=== PATIENT | female | born 1935 | race Two or more races ===

== ENCOUNTER 2024-11-27 10:07 | Inpatient (IN) | payer MEDICARE, MEDICAID, SELFPAY ==
[2024-11-27] VITALS (56 sets, daily range): BP systolic 56–155; BP diastolic 28–89; PULSE 48–144; RESP 12–90; TEMP 36.4–36.7; O2SAT 82–100; BMI 28.9
--- NOTE | 2024-11-27 11:41 | XR_ITS ---
Examination: Duplex scan of the lower extremity, unilateral left complete Date and time of exam: November 27, 2024 1209 hours INDICATIONS: Redness swelling and pain involving the lower leg this week Technique: Duplex scan of the extremity veins using B-mode/grayscale imaging and Doppler spectral analysis and color flow Attention is directed to internal echogenicity, compression and augmentation involving these veins, color flow assessment, spectral analysis Findings: Major deep venous structures in the extremity demonstrate normal course and caliber. There is no evidence of deep vein thrombosis. Normal color flow and spectral analysis Impression: Negative for DVT..
--- NOTE | 2024-11-27 11:42 | PD.EDADULT ---
ED General RME/HPI General Chief complaint: General Adult/Misc Complain Stated complaint: RULE OUT DVT Time Seen by Provider: 11/27/24 11:39 Arrival date/time: 11/27/24 10:07 CC: Left lower extremity warm and red. Reported by assisted care facility the patient is barely verbal and I believe this is baseline per nursing report. Patient states she has no specific pain after multiple times of prompting her awake. Related Data Home Medications ?Medication ?Instructions ?Recorded ?Confirmed famotidine 20 mg tablet (Pepcid) 20 mg PO QDAY #0 tabs 08/05/12/23/23 insulin glargine 100 unit/mL (3 10 unit subcut QAM 02/13/21 12/23/23 mL) subcutaneous pen (Basaglar KwikPen U-100 Insulin) calcitriol 0.25 mcg capsule 0.25 mcg PO HS 10/13/21 12/23/23 ferrous sulfate 325 mg (65 mg 325 mg PO BID 10/13/21 12/23/23 iron) tablet folic acid 1 mg tablet 1 mg PO QDAY 10/13/21 12/23/23 memantine 10 mg tablet 10 mg PO BID 10/13/21 12/23/23 amlodipine 2.5 mg tablet 2.5 mg PO QAM 10/13/23 12/23/23 atorvastatin 80 mg tablet 80 mg PO HS 10/13/23 12/23/23 carvedilol 3.125 mg tablet 3.125 mg PO BID 10/13/23 12/23/23 clopidogrel 75 mg tablet 75 mg PO QDAY 10/13/23 12/23/23 acetaminophen 325 mg tablet 650 mg PO Q6HR PRN MILD PAIN (1-3) 12/23/23 12/23/23 (Tylenol) cyanocobalamin (vitamin B-12) 1,000 mcg PO DAILY 12/23/23 12/23/23 1,000 mcg tablet insulin aspart U-100 100 unit/mL 1 sliding scale dose subcut 12/23/23 12/23/23 subcutaneous solution (Novolog USEASDIRECTD U-100 Insulin aspart) insulin glargine 100 unit/mL (3 10 unit subcut HS 12/23/23 12/23/23 mL) subcutaneous pen (Basaglar KwikPen U-100 Insulin) linagliptin 5 mg tablet (Tradjenta) 5 mg PO QDAY 12/23/23 12/23/23 Previous Rx's ?Medication ?Instructions ?Recorded pantoprazole 40 mg tablet,delayed 40 mg PO QDAY #30 tabs 10/17/23 release cephalexin 500 mg capsule 500 mg PO BID #10 caps 12/24/23 Allergies Allergy/AdvReac Type Severity Reaction Status Date / Time No Known Allergies Allergy Verified 11/27/24 10:46 Review of Systems Review of Systems ROS Unobtainable: unobtainable due to mental status Past Medical History Past Medical History NEUROLOGIC: Positive Neurological Disorders, Cerebrovascular Accident and Dementia; Negative Transient Ischemic Attacks (TIA), Alzheimer's Disease, Parkinson's Disease, Brain Tumor, Meningitis, Seizures, Epilepsy, Multiple Sclerosis, Cerebral Palsy, Amyotrophic Lateral Sclerosis (ALS/Quin Gehrig's), Guillain-Enola Syndrome, Spina Bifida, Paralysis, Peripheral Neuropathy, Diaz's Palsy, Subdural Hematoma, Migraine, Head Trauma, Spinal Cord Injury or Traumatic Brain Injury CARDIAC: Positive Hypercholesterolemia, Deep Vein Thrombosis and Hypertension; Negative Cardiac Disorders, Myocardial Infarction, Cardiac Arrhythmia, Atrial Fibrillation, Angina, Heart Murmur, Coronary Artery Disease, Atherosclerotic Heart Disease, Peripheral Vascular Disease, Aneurysm, Congestive Heart Failure, Congenital Heart Disease, Valvular Heart Disease, Rheumatic Fever, Cardiomyopathy, Edema, Pericarditis, Cellulitis or Varicose Veins RESPIRATORY: Positive Pneumonia; Negative Chronic Obstructive Pulmonary Disease (COPD), Asthma, Bronchitis, Emphysema, Pulmonary Fibrosis, Cystic Fibrosis, Tuberculosis, Pulmonary Embolism, Pulmonary Edema or Sleep Apnea GASTROINTESTINAL: Negative Gastrointestinal Disorders or Colorectal Cancer GENITOURINARY: Positive Genitourinary Disorders and Renal Disease; Negative Kidney Stones, Polycystic Kidney Disease, Neurogenic Bladder, Inguinal Hernia, Dialysis, Prostate Cancer or Benign Prostatic Hyperplasia REPRODUCTIVE: Positive Previous Pregnancies; Negative Breast Cancer, Endometriosis, Genital Herpes, Gonorrhea, Pelvic Inflammatory Disease, Syphilis, Testicular Cancer or Uterine Prolapse MUSCULOSKELETAL: Positive Musculoskeletal Disorders, Osteoporosis, Carpal Tunnel Syndrome and Fractures (wedge fracture of first lumbar vertebrae); Negative Muscular Dystrophy, Myasthenia Gravis, Marfan's Syndrome, Bone Cancer, Arthritis, Rheumatoid Arthritis, Degenerative Disk Disease, Gout, Scoliosis, Fibromyalgia, Degenerative Joint Disease, Osteomyelitis or Poliovirus ENT: Negative Cataracts, Glaucoma, Blind, Retinal Detachment, Macular Degeneration, Ear Infection, Deafness, Head Trauma or Eye Prosthesis ENDOCRINE: Positive Endocrine Disorders, Diabetes Mellitus Type 2 and Hypoglycemia; Negative Diabetes Mellitus Type 1, João's Syndrome, Dawson's Disease, Hyperthyroidism, Hypothyroidism, Parathyroid Disease, Pituitary Disease, Systemic Lupus Erythematosus, Syndrome of Inappropriate Antidiuretic Hormone (SIADH), Adrenal Disease or Graves' Disease HEMATOLOGIC: Negative Blood Disorders, Anemia, Leukemia, Hemophilia, Thalassemia, Sickle Cell Disease or Clotting Problems PSYCHO/SOCIAL: Negative Psychiatric Problems, Schizophrenia, Recreational Drug Use, Bipolar Disorder, Depression, Anxiety, Behavior Problems, Self-Mutilation, Attention Deficit Disorder, Attention Deficit Hyperactivity Disorder, Depression, Post Traumatic Stress Disorder or Eating Disorder OTHER HISTORY: Positive Hospitalization and Falls; Negative Autoimmune Disease, Down Syndrome, Autism, Developmental Delay, Blood Transfusions, Blood Transfusion Reaction, Anesthesia Reactions, Cancer, Breast Cancer, Cervical Cancer, Colorectal Cancer, Lung Cancer, Ovarian Cancer, Prostate Cancer or Testicular Cancer Surgical History SURGICAL: Negative Pacemaker Social History SMOKING STATUS: Never smoker SUBSTANCE USE: does not use ED Exam Narrative Physical exam: [General: Appears not in any acute distress Head normocephalic HEENT: Eyes: Pupils are PERRLA EOMs mouth: [place] dry membranes nose no rhinorrhea. All other subsystems of HEENT are intact within acceptable limits Neck is supple nontender Chest equal chest rise nontender to palpation Respiratory: Clear to auscultation no wheezes crackles or rubs CV: Rate rhythm is regular no murmurs rubs or clicks Abdomen is soft, no grimaces with palpation, no masses positive bowel sounds all 4 quadrants Back: No CVA tenderness no spinous process tenderness from cervical spine thoracic and lumbar spine Skin: Intact no petechiae rash induration ulceration or crepitus Extremities: Moving all extremity against resistance cap refill less than 2 seconds neurosensory intact Neuro: Sleeping, awakened with verbal stimuli. Course Quality Measures none Orders Category Date Time Status In and Out Catheter X1 Care 11/27/24 11:41 Active US venous doppler LE LT Stat Exams 11/27/24 11:41 Completed CBC Stat Lab 11/27/24 12:30 Completed CMP [Comprehensive Metabolic Panel] Stat Lab 11/27/24 12:30 Completed Urinalysis, C/S if Indicated Stat Lab 11/27/24 12:49 Completed Urine Culture Stat Lab 11/27/24 12:49 Received cefTRIAXone [Rocephin] 1,000 mg Med 11/27/24 13:43 Ordered SODIUM CHLORIDE 0.9% (Popper) [Ns 0.9% (P)] 50 ml IV X1 MDM Patient data External records reviewed:: [facility] previous records and EMS form Clinical information provided by:: patient and EMS Social determinants that could affect healthcare access:: none Patient has the following chronic illnesses:: CKD CVA DVT left lower extremity diabetes iron deficiency dementia How is presenting disease/condition affected by chronic disease/condition?: exacerbated by Evaluation data The following diagnostics were reviewed and interpreted by me:: lab results and radiology exam(s) Lab and/or radiology exams considered but not ordered:: CBC shows a leukocytosis of 15.5 and anemia with a hemoglobin of 7.5 and a crit of 23.2 platelets are normal. CMP shows sodium 135 potassium of 4.4 chloride of 105 carbon dioxide 21.3 gap of 9 BUN of 60 and a creatinine of 3.2 this significantly worsening from last laboratory draw with a GFR of 13 glucose at 145 no significant transaminitis or T. bili elevation. Urine is positive for UTI UTI Ultrasound of the lower leg is negative for DVT. Interpretation Summary: Given the patient which is sent over for rule out DVT I suspect this is cellulitis in the lower leg with a 15,000 white count and in addition to having urinary tract infection the patient is in acute on chronic renal failure and patient needs to be admitted as the patient is a full code. Patient's case discussed with the resident for Dr. Leavitt who agrees to accept the patient for admission. Medications Medications considered but not ordered:: None Medication administrations:: Medication Administration History Ceftriaxone Sodium 1,000 mg/ (Sodium Chloride) 50 mls @ 100 mls/hr IV X1 ONE Stop: 11/27/24 14:12 None Consultations Consultation(s) initiated? (list below): No Diagnosis Differential Diagnosis ED Complaint MDM: DVT sepsis UTI acute renal failure Most likely diagnosis given after review of the tests above:: Lower leg cellulitis UTI acute on chronic renal failure Admission Indicated Admission indicated?: indicated Explain why admission is indicated or not indicated:: Requires further medical management Admission Request Was there a request for admission?: No Disposition Plan Disposition Plan: Admit Medical Decision Making Differential Diagnosis Differential Diagnosis: DVT sepsis UTI acute renal failure Lab Data 11/27/24 12:30 11/27/24 12:30 Labs: Lab Results 11/27/24 11/27/24 Range/Units 12:30 12:49 WBC 15.5 H (3.6-11.0) Thou/mm3 RBC 2.35 L (4.00-5.20) Miln/mm3 Hgb 7.5 L (12.0-16.0) g/dL Hct 23.2 L (36.0-46.0) % MCV 99 (80-100) fL MCH 31.9 (25.0-35.0) pg MCHC 32.3 (31.0-37.0) g/dl RDW Std Deviation 45.1 (36.4-46.3) fL Plt Count 175 (140-440) Thou/mm3 Neut % (Auto) 82 H (37-80) % Lymph % (Auto) 10 (10-50) % [place] % (Auto) 7 (0-12) % Eos % (Auto) 0 (0-10) % Baso % (Auto) 0 (0-2.5) % Neut # (Auto) 12.7 H (1.8-7.7) Thou/mm3 Lymph # (Auto) 1.5 (1.0-4.8) Thou/mm3 [place] # (Auto) 1.1 H (0.0-0.8) Thou/mm3 Eos # (Auto) 0.1 (0.0-0.5) Thou/mm3 Baso # (Auto) 0.0 (0.0-0.2) Thou/mm3 Immature Gran # (Auto) 0.08 H (0.00-0.00) Thou/mm3 Absolute Nucleated RBC 0.00 (0.00-0.00) Thou/mm3 Immature Gran % 1 H (0-0) % Nucleated RBC % 0 (0) /100 WBC Sodium 135 L (136-145) mMol/L Potassium 4.4 (3.4-5.1) mMol/L Chloride 105 (98-107) mMol/L Carbon Dioxide 21.3 (20.0-31.0) mMol/L Anion Gap 9 (7-16) BUN 60 H (9-23) mg/dL Creatinine 3.2 H (0.6-1.3) mg/dL Estim Creat Clear Calc 11.0 L (>60) mL/min eGFR 13 L* (60 - ) See Note BUN/Creatinine Ratio 19 (12-20) Ratio Glucose 145 H (74-106) mg/dL Calculated Osmolality 290 (275-295) Calcium 8.7 (8.3-10.6) mg/dL Corrected Calcium 9.3 (8.5-10.1) mg/dL Total Bilirubin 0.5 (0.3-1.2) mg/dL AST 20 (0-34) U/L ALT 8 L (10-49) U/L Alkaline Phosphatase 70 (46-116) U/L Total Protein 6.3 (5.7-8.2) gm/dL Albumin 3.2 L (3.4-4.8) gm/dL Globulin 3.1 (2.3-3.5) gm/dL Albumin/Globulin Ratio 1.0 L (1.2-2.2) Ur Collection Type Catheter Urine Color [place] A (Lt Yel-Yel) Urine Clarity Cloudy A (Clear/Hazy) Urine pH 6.5 (5.0-7.0) Ur Specific [place] 1.019 (1.001-1.035) Urine Protein 2+ A (Neg - Trace) Urine Glucose (UA) Negative (Negative) Urine Ketones Negative (Negative) Urine Blood 2+ A (Negative) Urine Nitrite Negative (Negative) Urine Bilirubin Negative (Negative) Urine Urobilinogen (Auto) Negative (0.0-1.0) mg/dL Ur Leukocyte Esterase Positive (Negative) Urine RBC 27 H (0-3) /hpf Urine WBC 2440 H (0-5) /hpf Ur Squamous Epith Cells 0 (0-5) /hpf Urine Bacteria 1+ A (None) Ur Culture Indicated? Yes Discharge Plan Plan Patient Disposition: Other Care w/in Hosp ([facility]) Patient condition on transfer: Stable Prescriptions/Referrals Prescriptions/Med Rec: No Action famotidine [Pepcid] 20 MG tablet 20 mg PO QDAY Qty: 0 Patient Comments: TO SUPPRESS GASTRIC ACID SECRETION ferrous sulfate 325 mg (65 mg iron) Tablet 325 mg PO BID folic acid 1 mg tablet 1 mg PO QDAY calcitriol 0.25 mcg Capsule 0.25 mcg PO HS memantine 10 mg Tablet 10 mg PO BID insulin glargine [Basaglar KwikPen U-100 Insulin] 100 unit/mL (3 mL) insulin pen 10 unit SUBCUT QAM Rx Instructions: NOTIFY MD IF BS >400,<70 carvedilol 3.125 mg Tablet 3.125 mg PO BID Rx Instructions: must administer with a meal/food HOLD FOR SBP<100,DBP<60 amlodipine 2.5 mg Tablet 2.5 mg PO QAM Rx Instructions: HOLD FOR SBP<100 OR DBP<60 clopidogrel 75 mg Tablet 75 mg PO QDAY atorvastatin 80 mg Tablet 80 mg PO HS pantoprazole 40 mg tablet,delayed release (DR/EC) 40 mg PO QDAY Qty: 30 1RF insulin glargine [Basaglar KwikPen U-100 Insulin] 100 unit/mL (3 mL) Insulin Pen 10 unit SUBCUT HS Rx Instructions: DM FINGERSTICK PRIOR TO ADMINISTRATION-NOTIFY MD IF BS>400,<70 Tradjenta 5 mg Tablet 5 mg PO QDAY Rx Instructions: FOR DM,HOLD IF BS <100 OR NOTIFY MD IF BS>400 acetaminophen [Tylenol] 325 mg Tablet 650 mg PO Q6HR PRN (Reason: MILD PAIN (1-3)) insulin aspart U-100 [Novolog U-100 Insulin aspart] 100 unit/mL Solution 1 sliding scale dose SUBCUT USEASDIRECTD Rx Instructions: INJECT PER SLIDING SCALE: IF 70-150=0;151-200=2;201-250=4;251-300=6;301-350=8;351-400=10;>400 NOTIFY MD,SUBCUT 3X A DAY FOR DM HOLD BS IF<100 OR NOTIFY MD IF BS >400,<70 FINGERSTICK PRIOR TO ADMINISTRATION. cyanocobalamin (vitamin B-12) 1,000 mcg Tablet 1,000 mcg PO DAILY cephalexin 500 mg capsule 500 mg PO BID Qty: 10 0RF Referrals: Williams White MD [Primary Care Provider] - In 1 week Problem List Clinical Impression: UTI (urinary tract infection), Acute on chronic kidney failure, Bilateral cellulitis of lower leg Patient/Caregiver Discharge Instructions Print Language: Tamazight Stand Alone Forms: Nelsy Award Info., Patient Portal Info Letter PA/SYSTEMS MECHANIC Supervising Physician PA/SYSTEMS MECHANIC Supervising Physician: Jacoby Carney ENP
[2024-11-27 12:39] LABS: Basophils % (Auto) 0 % (0-2.5); Eosinophils # (Auto) 0.1 Thou/mm3 (0.0-0.5); Eosinophils % (Auto) 0 % (0-10); Hematocrit 23.2 % (36.0-46.0); Immature Granulocytes % (Auto) 1 % (0-0); Immature Granulocytes Auto 0.08 Thou/mm3 (0.00-0.00); Lymphocytes # (Auto) 1.5 Thou/mm3 (1.0-4.8); Lymphocytes % (Auto) 10 % (10-50); Mean Corpuscular HGB Conc 32.3 g/dl (31.0-37.0); Mean Corpuscular Hemoglobin 31.9 pg (25.0-35.0); Mean Corpuscular Volume 99 fL (80-100); Monocytes # (Auto) 1.1 Thou/mm3 (0.0-0.8); Monocytes % (Auto) 7 % (0-12); Neutrophils # (Auto) 12.7 Thou/mm3 (1.8-7.7); Neutrophils % (Auto) 82 % (37-80); Nucleated Red Blood Cell % 0 /100 WBC (0); Platelet Count 175 Thou/mm3 (140-440); RDW Standard Deviation 45.1 fL (36.4-46.3); Red Blood Count 2.35 Miln/mm3 (4.00-5.20); White Blood Count 15.5 Thou/mm3 (3.6-11.0)
[2024-11-27 12:43] LABS: Hemoglobin 7.5 g/dL (12.0-16.0)
[2024-11-27 13:00] LABS: Collection Type, Urine Catheter; Squamous Epithelial Cell,Urine 0 /hpf (0-5)
[2024-11-27 13:12] LABS: Bacteria,Urine 1+; Bilirubin,Urine Negative (Negative); Blood,Urine 2+ (Negative); Color,Urine Orange (Lt Yel-Yel); Glucose, Urine Negative (Negative); Ketones,Urine Negative (Negative); Leukocyte Esterase,Urine Positive (Negative); Nitrite,Urine Negative (Negative); PH,Urine 6.5 (5.0-7.0); Protein,Urine 2+ (Neg - Trace); RBC,Urine 27 /hpf (0-3); Specific Gravity,Urine 1.019 (1.001-1.035); Urobilinogen,Urine Negative mg/dL (0.0-1.0); WBC,Urine 2440 /hpf (0-5)
[2024-11-27 13:15] LABS: Clarity,Urine Cloudy (Clear/Hazy); Culture Indicated,Urine Yes
[2024-11-27 13:16] LABS: Alanine Aminotransferase 8 U/L (10-49); Albumin, Serum 3.2 gm/dL (3.4-4.8); Alkaline Phosphatase 70 U/L (46-116); Anion Gap 9 (7-16); Aspartate Amino Transferase 20 U/L (0-34); BUN/Creatinine Ratio 19 Ratio (12-20); Bilirubin,Total 0.5 mg/dL (0.3-1.2); Blood Urea Nitrogen 60 mg/dL (9-23); Calcium 8.7 mg/dL (8.3-10.6); Calcium (Corrected) 9.3 mg/dL (8.5-10.1); Carbon Dioxide 21.3 mMol/L (20.0-31.0); Chloride 105 mMol/L (98-107); Creatinine (Component) 3.2 mg/dL (0.6-1.3); Globulin 3.1 gm/dL (2.3-3.5); Glucose 145 mg/dL (74-106); Osmolality,Calculated 290 (275-295); Potassium 4.4 mMol/L (3.4-5.1); Sodium 135 mMol/L (136-145); Total Protein 6.3 gm/dL (5.7-8.2); eGFR 13 See Note
[2024-11-27] MEDS: cefTRIAXone 1,000 MG in SODIUM CHLORIDE 0.9% (Popper) 50 ML 100 MG IV (14:13)
[2024-11-27] MEDS: SODIUM CHLORIDE 0.9% 500 ML 500 ML 999 ML IV ×3 (14:14→15:03)
--- NOTE | 2024-11-27 14:30 | EKG_ITS ---
[facility] Test Date: 2024-11-27 Pat Name: GABE STANLEY Department: Room: - Gender: Female Bell Ringer: : 1935 Requested By: Lacie Higgins Order Number: [id number] Reading MD: Lacie Higgisn Measurements Intervals [place] Rate: 69 P: 23 WI: 151 QRS: 15 QRSD: 76 T: 3 QT: 425 QTc: 458 Interpretive Statements SINUS RHYTHM Compared to ECG 06/16/2022 11:21:45 No significant changes /store/S0/[id number].pdf
--- NOTE | 2024-11-27 14:30 | XR_ITS ---
Examination: AP chest single view Technique one AP portable upright chest single view Exam date and time: November 27, 2024 1340 hours Comparison December 22, 2023 INDICATIONS: Shortness of breath today. FINDINGS: Moderate vascular congestion Normal heart size No lobar pneumonia IMPRESSION: Moderate vascular congestion
--- NOTE | 2024-11-27 14:40 | PC.NURSE ---
md dr. burrell at bedside pt went unresponsive .
--- NOTE | 2024-11-27 14:40 | XR_ITS ---
Examination: CT chest, without intravenous contrast. CT abdomen, without intravenous contrast. CT pelvis, without intravenous contrast. 2-D sagittal and coronal reconstructions. 3-D reconstructions. Date and time of exam:November 27, 2024 1551 hours INDICATIONS: Onset shortness of breath chest pain today, history severe emphysematous gastritis on CT abdomen October 12, 2023 CTDI vol (mgy) 8.24 DLP (MGycm)534 Technique: Multiple CT images, 3.0 mm slice thickness, obtained chest, abdomen, pelvis, with the high-resolution 64 slice scanner.. Sagittal and coronal 2-D reconstructions are obtained. 3-D reconstructions Low dose protocols were performed. One or more of the following dose reduction techniques were used; automated exposure control, adjustment of the mA and/or KV according to patient size, use of iterative reconstruction technique. Findings: No thoracic aortic aneurysm dilatation Pulmonary artery segments are not enlarged Calcification vomiting lower bronchial tubes No paratracheal tracheobronchial or bronchopulmonary adenopathy Opacity left base consistent with pneumonia No visualized liver or splenic lesion Mildly hyperdense gallbladder No pancreatic or adrenal mass Atrophic kidneys no hydronephrosis Abdominal aortic calcification no aneurysmal dilatation 28 mm fat-containing umbilical hernia No pericecal inflammatory change No bowel obstruction Mildly fluid distended small bowel loops Anteverted uterus with fundal areas of calcification Severe osteopenia with chronic osteoporotic compression L1 Moderate narrowing hip joints IMPRESSION: Left base pneumonia Recommend hepatobiliary sonography follow-up 20 mm fat-containing umbilical hernia No bowel obstruction Mild small bowel ileus Severe osteopenia
--- NOTE | 2024-11-27 14:40 | XR_ITS ---
Examination: CT brain head without contrast. 2-D sagittal coronal reconstructions Date and time of exam:November 27, 2024 1456 hours Comparison December 22, 2023 INDICATIONS: Altered mental status today CTDI: vol (mGy):45.1 DLP: (mGycm):1007 Technique: Multiple CT axial sections of the brain have been obtained, 5 mm slice thickness. Contrast has not been administered. 2-D sagittal, coronal reconstructions have been obtained Low dose protocols were performed. One or more of the following dose reduction techniques were used; automated exposure control, adjustment of the mA and/or KV according to patient size, use of iterative reconstruction technique. Findings: No significant ventricular enlargement. Old infarcts right cerebellar hemisphere Intra-axial or extra-axial hemorrhage density is not seen. No mass effect or midline shift Basal cisterns are not remarkable. Fourth ventricle is midline. Cranial vault intact. Impression: Negative for acute hemorrhage, mass effect or midline shift As clinically warranted, consider brain MRI follow-up, stroke protocol
--- NOTE | 2024-11-27 14:47 | PD.RESCONSUL ---
HPI Data of Consult Primary Care Provider: Williams White MD Consult Narrative Reason for consult: Evaluation for admission for DEEPA on CKD and UTI History of present illness: Patient is a 89-year-old [place]guillan-speaking female with past medical history of type 2 diabetes, GERD, CVA, dementia, hyperlipidemia, hypertension, DVT, and CKD stage 4, who was brought to the ED from [facility] on 11/27/2024 due to swelling and redness of the left lower extremity for DVT evaluation. Patient herself did not seem to be having any complaints. Patient's who is the decision maker present at the bedside. He states he has not noticed any changes in the patient. He confirms that the patient is Full Code status. At baseline the patient is talking, although has some element of dementia. She is a maximal assist when transferring but she was walking short amount with a walker previously. ED Course: -Initial vitals were BP 103/53, HR 71, RR 16, and Temp 97.7, saturating 99% on room air. -Labs significant for WBC 15.5, Hgb 7.5, BUN 60, creatinine 3.2 (baseline 2.0), GFR 13 (baseline 20s) -UA showed positive leukocyte esterase with 2440 WBCs, 1+ bacteria -In the ED, patient was given ceftriaxone 1 g IV x1 and IV NS 500 ml bolus -Hospitalist Team B was called for evaluation for admission for DEEPA on CKD and UTI -At approximately 14:31 the hospitalist team was at bedside evaluating the patient, at first patient appeared to be responding to some questions in [place] with nods but then patient suddenly became less responsive, appeared to nod her head to the left and started snoring with eyes open. She subsequently started desaturating to 80%, previously was saturating well 90s on room air. BP was recycled and showed a MAP in the 50s for several readings. Despite sternal rub patient was no longer interacting with providers and patient not withdrawing to pain. RN and RT called to bedside to initiate O2 therapy and ED providers called to bedside. EKG, CXR, troponin, lactate, procalcitonin, and ABG were ordered. ED ordered additional 1L fluid bolus, CT head, chest/abdomen/pelvis and will follow up as patient is stabilized. Admission will be held off for now pending studies. Review of Systems Review of systems unable to be obtained due to mental status. cc:: cc: Past Medical History Past Medical History Comments PMH COMMENT: Past Medical History: Type 2 diabetes, GERD, CVA, dementia, hyperlipidemia, hypertension, DVT, CKD stage 4 Family History: Unknown Surgical History: Unknown Social History: No known history of smoking, alcohol use, or recreational drug use Current Medications: cephalexin 500 mg BID (started 11/27/2024 for cellulitis), amlodipine 2.5 mg daily, atorvastatin 80 mg daily, insulin glargine 18 U qday, insulin aspart 7 U AC, insulin aspart sliding scale, Tradjenta 5 mg daily, carvedilol 3.125 mg BID, clopidogrel 75 mg daily, famotidine 20 mg daily, memantine 10 mg BID, calcitriol 0.25 mcg daily, ferrous sulfate 325 mg BID, folic acid 1 mg daily, Vitamin B12 1000 U daily, Benadryl 25 mg q12h prn, acetaminophen 325 mg as needed, dulcolax 10 mg prn, milk of magnesia 30 ml prn, fleet enema prn (Source: [facility] med list 11/28/2023) Allergies: No known drug allergies Exam Vital Signs Temp Pulse Resp BP Pulse Ox O2 Del Method 97.6 F 75 12 73/42 L 82 L Room Air 11/27/24 14:43 11/27/24 14:43 11/27/24 14:43 11/27/24 14:43 11/27/24 14:43 11/27/24 14:43 Narrative Exam Physical Exam General: Patient awake, nods head in response to questions in [place]. Minutes later patient became unresponsive to sternal rub. HEENT: Normocephalic, atraumatic, mucous membranes moist. Left eye with medial yellow crusting. Heart: Regular rate and rhythm, no murmurs. Lungs: Clear to auscultation with no wheezing or crackles. Abdomen: Soft, nondistended, nontender, positive bowel sounds. ?No guarding or rebound tenderness. Neurologic: Alert and oriented x0, moving all extremities spontaneously Extremities: Left lower extremity significant edema, warm to touch, slightly darker in color than right. No right lower extremity edema. Skin: Mild erythema of the left lower extremity, no clear demarcation. Results Labs 11/27/24 14:53 11/27/24 14:53 Labs: Short CBC 11/27/24 Range/Units 12:30 WBC 15.5 H (3.6-11.0) Thou/mm3 Hgb 7.5 L (12.0-16.0) g/dL Hct 23.2 L (36.0-46.0) % Plt Count 175 (140-440) Thou/mm3 BMP 11/27/24 12:30 Sodium 135 L Potassium 4.4 Chloride 105 Carbon Dioxide 21.3 BUN 60 H Creatinine 3.2 H Glucose 145 H Calcium 8.7 Liver Function 11/27/24 Range/Units 12:30 Total Bilirubin 0.5 (0.3-1.2) mg/dL AST 20 (0-34) U/L ALT 8 L (10-49) U/L Alkaline Phosphatase 70 (46-116) U/L Albumin 3.2 L (3.4-4.8) gm/dL Urine 11/27/24 Range/Units 12:49 Urine Color [place] A (Lt Yel-Yel) Urine Clarity Cloudy A (Clear/Hazy) Urine pH 6.5 (5.0-7.0) Ur Specific [place] 1.019 (1.001-1.035) Urine Protein 2+ A (Neg - Trace) Urine Glucose (UA) Negative (Negative) Quality Measures Quality Measures none Advance care planning discussed with:: patient and spouse Medications Home Medications and Allergies Home Medications ?Medication ?Instructions ?Recorded ?Confirmed ?Type famotidine 20 mg tablet (Pepcid) 20 mg PO QDAY #0 tabs 08/05/17 12/23/23 History insulin glargine 100 unit/mL (3 10 unit subcut [facility] 02/13/21 12/23/23 History mL) subcutaneous pen (Basaglar KwikPen U-100 Insulin) calcitriol 0.25 mcg capsule 0.25 mcg PO HS 10/13/21 12/23/23 History ferrous sulfate 325 mg (65 mg 325 mg PO BID 10/13/21 12/23/23 History iron) tablet folic acid 1 mg tablet 1 mg PO QDAY 10/13/21 12/23/23 History memantine 10 mg tablet 10 mg PO BID 10/13/21 12/23/23 History amlodipine 2.5 mg tablet 2.5 mg PO QAM 10/13/23 12/23/23 History atorvastatin 80 mg tablet 80 mg PO HS 10/13/23 12/23/23 History carvedilol 3.125 mg tablet 3.125 mg PO BID 10/13/23 12/23/23 History clopidogrel 75 mg tablet 75 mg PO QDAY 10/13/23 12/23/23 History acetaminophen 325 mg tablet 650 mg PO Q6HR PRN MILD PAIN (1-3) 12/23/23 12/23/23 History (Tylenol) cyanocobalamin (vitamin B-12) 1,000 mcg PO DAILY 12/23/23 12/23/23 History 1,000 mcg tablet insulin aspart U-100 100 unit/mL 1 sliding scale dose subcut 12/23/23 12/23/23 History subcutaneous solution (Novolog USEASDIRECTD U-100 Insulin aspart) insulin glargine 100 unit/mL (3 10 unit subcut HS 12/23/23 12/23/23 History mL) subcutaneous pen (Basaglar KwikPen U-100 Insulin) linagliptin 5 mg tablet (Tradjenta) 5 mg PO QDAY 12/23/23 12/23/23 History Allergies Allergy/AdvReac Type Severity Reaction Status Date / Time No Known Allergies Allergy Verified 11/27/24 10:46 Visit Medications Sodium Chloride (Ns) 500 mls @ 999 mls/hr IV .Q31M ONE Stop: 11/27/24 15:11 Last Admin: 11/27/24 14:45 Dose: 999 mls/hr Discontinued Medications Ceftriaxone Sodium 1,000 mg/ (Sodium Chloride) 50 mls @ 100 mls/hr IV X1 ONE Stop: 11/27/24 14:12 Last Admin: 11/27/24 14:13 Dose: 100 mls/hr Sodium Chloride (Ns) 500 mls @ 999 mls/hr IV .Q31M ONE Stop: 11/27/24 14:35 Last Admin: 11/27/24 14:14 Dose: 999 mls/hr Assessment & Plan Plan Patient is a 89-year-old [place]guillan-speaking female with past medical history of type 2 diabetes, GERD, CVA, dementia, hyperlipidemia, hypertension, DVT, and CKD stage 4, who was brought to the ED from [facility] on 11/27/2024 due to swelling and redness of the left lower extremity for DVT evaluation, was found to have DEEPA on CKD and UTI. Hospital team was consulted regarding admission but patient had acute drop in oxygenation and blood pressure during the evaluation. #Hypotension #Shock #Acute metabolic encephalopathy #Acute hypoxic respiratory failure #UTI #DEEPA on CKD Possible etiologies include septic shock, cardiogenic shock, obstructive shock. May be secondary to endotoxin response if patient has gram-negative bacteremia secondary to UTI. She just started receiving the ceftriaxone 30 minutes prior to evaluation. -CXR ordered -EKG ordered -ABG ordered -Troponin, lactic acid, procalcitonin ordered -Agree with CT of the head, chest, abdomen, and pelvis -May consider CT pulmonary angiogram to rule out PE given the left lower leg swelling, despite negative venous doppler, there may have been a clot which moved up. Risks versus benefits must be considered as the patient has DEEPA on CKD with GFR of 13 lower than baseline. -Continue broad-spectrum antibiotics -Supplemental O2 -If patient not able to protect airways then intubate -Aggressive IV fluid resuscitation -Recommend ICU consultation if patient is not responsive to fluids Patient is full code according to spouse at bedside. Patient plan of care was discussed with the attending physician, Dr. Leavitt. Lacie Higgins, PGY-2 Attending Provider Attestation/Addendum I reviewed labs, imaging, EKG, home medications and prior available records. Face to face evaluation was performed by me. I have personally examined the patient and discussed assessment and plan with the IM team. I reviewed the resident note and agree with the plan with exceptions as below. Patient is an 89-year-old female with history of dementia who presented with a chief complaint of left lower extremity swelling. She was found to have cellulitis and DEEPA on CKD. She was initially planned to be admitted to the floor however patient became unresponsive suddenly and hypotensive for which further workup needed to be done Acute hypotension Shock Acute respiratory failure with hypoxia Acute encephalopathy DEEPA on CKD Dementia, likely Alzheimer's type Left lower extremity cellulitis Insulin-dependent type 2 diabetes mellitus Essential hypertension Initially, patient was planned to be admitted for management of left lower extremity cellulitis and DEEPA on CKD likely in the setting of dehydration. All of a sudden during our evaluation, patient became responsive, hypoxic, and hypotensive. She was put on oxy mask and more IV fluids were ordered. Discussed the case with ED: Concern for shock which can be in setting of acute PE versus septic shock versus profound dehydration versus less likely cardiogenic. Recommend CT of the head, chest, abdomen, and pelvis. She has severely decreased GFR of [address] with contrast will put the patient at risk of further kidney function decline and potential hemodialysis however benefits might be more than the risks. Recommend to continue IV hydration. Start broad-spectrum antibiotic. Ordered echocardiogram. In case patient not able to protect her airways then intubate. Recommend ICU consultation.
[2024-11-27] MEDS: Norepinephrine/D5W 8mg/250ml 8 MG/250 ML BAG 6.719 MG IV (15:10)
--- NOTE | 2024-11-27 15:11 | EKG_ITS ---
[facility] Test Date: 2024-11-27 Pat Name: GABE STANLEY Department: Room: - Gender: Female Shop Helper: : 1935 Requested By: Jacoby Holder Order Number: [id number] Reading MD: Jacoby Holder Measurements Intervals [place] Rate: 75 P: 67 [place]: 161 QRS: 6 QRSD: 89 T: 13 QT: 394 QTc: 443 Interpretive Statements SINUS RHYTHM WITH SINUS ARRHYTHMIA LOW QRS VOLTAGE IN PRECORDIAL LEADS [QRS DEFLECTION < 1.0 mV IN CHEST LEADS] MODERATE ST DEPRESSION [0.05+ mV ST DEPRESSION] Compared to ECG 11/27/2024 14:34:08 Low QRS voltage now present ST (T wave) deviation now present /store/S0/[id number]/ecg/[id number].pdf
--- NOTE | 2024-11-27 15:19 | PD.EDADDENDU ---
Emergency Room Addendum Addendum Narrative: At 1519, the patient is given 30 mg/kg of 1500 cc of normal saline with no change in her blood pressure which was 80/60, patient started on Levophed repeat EKG was done at 1515 shows ventricular rate of 75 NH interval 161 QRS of 8 9 QTc of 424 there is normal sinus rhythm with bradycardia. Oxygen was turned down to 4 L simple facemask from 15 and still maintaining good oxygen saturations.
[2024-11-27 15:20] LABS: Base Excess, Venous -9 (-3-3); O2 Saturation, Venous 98 % (96-97); PCO2, Venous 43 mmHg (36-56); PO2, Venous 105 mmHg (15-58); pH, Venous 7.23 (7.33-7.66)
[2024-11-27 15:22] LABS: Lactate (Lactic Acid) 2.2 mMol/L (0.4-2.0)
[2024-11-27 15:23] LABS: Basophils % (Auto) 0 % (0-2.5); Eosinophils % (Auto) 0 % (0-10); Hematocrit 24.4 % (36.0-46.0); Immature Granulocytes % (Auto) 2 % (0-0); Immature Granulocytes Auto 0.09 Thou/mm3 (0.00-0.00); Lymphocytes # (Auto) 3.5 Thou/mm3 (1.0-4.8); Lymphocytes % (Auto) 57 % (10-50); Mean Corpuscular HGB Conc 31.6 g/dl (31.0-37.0); Mean Corpuscular Hemoglobin 31.4 pg (25.0-35.0); Mean Corpuscular Volume 100 fL (80-100); Monocytes # (Auto) 0.1 Thou/mm3 (0.0-0.8); Monocytes % (Auto) 2 % (0-12); Neutrophils # (Auto) 2.4 Thou/mm3 (1.8-7.7); Neutrophils % (Auto) 39 % (37-80); Nucleated Red Blood Cell % 0 /100 WBC (0); Platelet Count 134 Thou/mm3 (140-440); RDW Standard Deviation 46.1 fL (36.4-46.3); Red Blood Count 2.45 Miln/mm3 (4.00-5.20); White Blood Count 6.2 Thou/mm3 (3.6-11.0)
[2024-11-27 15:24] LABS: Hemoglobin 7.7 g/dL (12.0-16.0)
[2024-11-27 15:50] LABS: Alanine Aminotransferase 12 U/L (10-49); Albumin, Serum 2.9 gm/dL (3.4-4.8); Alkaline Phosphatase 67 U/L (46-116); Anion Gap 11 (7-16); Aspartate Amino Transferase 16 U/L (0-34); BUN/Creatinine Ratio 19 Ratio (12-20); Bilirubin,Total 0.5 mg/dL (0.3-1.2); Blood Urea Nitrogen 58 mg/dL (9-23); Calcium 8.1 mg/dL (8.3-10.6); Chloride 109 mMol/L (98-107); Creatinine (Component) 3.1 mg/dL (0.6-1.3); Estimated Creatinine Clearance 9.7 mL/min (>60); Globulin 2.8 gm/dL (2.3-3.5); Glucose 148 mg/dL (74-106); Osmolality,Calculated 294 (275-295); Potassium 4.1 mMol/L (3.4-5.1); Procalcitonin 2.94 ng/ml (0.0-0.49); Sodium 138 mMol/L (136-145); Total Protein 5.7 gm/dL (5.7-8.2); Troponin I 0.023 ng/mL (0.0-0.045); eGFR 14 See Note
[2024-11-27 18:11] LABS: Reflex Lactate? Y
--- NOTE | 2024-11-27 18:26 | PD.RESHP ---
Documentation for date of: 11/27/24 [facility] History of Present Illness History of present illness: Patient is a 89-year-old Vincentian-speaking female with past medical history of type 2 diabetes, GERD, CVA, dementia, hyperlipidemia, hypertension, history of DVT, CKD stage IV who was presented to ED from [facility] due to left lower extremity swelling and redness. History was mainly taken from daughter who was at the bedside, patient is a Vincentian speaker. Facility was contacted, nurse stated that for the last couple of days patient was complaining of mild generalized weakness, at baseline she is demented, oriented only on name and place, and for the last 2 days they have noticed that her left lower extremity became more red. Patient herself did not aware of why she is in ED. Upon my evaluation patient was AOx3, however was not completely appropriately answering to questions. She denied any chest pain, palpitation, abdominal pain, dysuria, or any other associated symptoms. ED course on presentation patient was found to be hemodynamically stable, labs revealed leukocytosis, anemia, DEEPA on CKD, UA was positive for UTI, in ED patient received IV ceftriaxone with half NS of bolus. Hospitalist team was consulted for admission. However during therapy evaluation patient suddenly became less responsive, subsequently started to desaturate to 80s and became hypotensive with MAP of less than 50s. Patient did receive additional 1 L bolus, without improvement of BP, at that point patient was placed on Levophed and decision was made to admit the patient to ICU for pressor support. PMH as above Allergies NKDA Social history no history of smoking, alcohol use, or recreational drug, patient resides at nursing facility, has 2 daughters and a son Medications cephalexin 500 mg BID (started 11/27/2024 for cellulitis), amlodipine 2.5 mg daily, atorvastatin 80 mg daily, insulin glargine 18 U qday, insulin aspart 7 U AC, insulin aspart sliding scale, Tradjenta 5 mg daily, carvedilol 3.125 mg BID, clopidogrel 75 mg daily, famotidine 20 mg daily, memantine 10 mg BID, calcitriol 0.25 mcg daily, ferrous sulfate 325 mg BID, folic acid 1 mg daily, Vitamin B12 1000 U daily, Benadryl 25 mg q12h prn, acetaminophen 325 mg as needed, dulcolax 10 mg prn, milk of magnesia 30 ml prn, fleet enema prn (Source: [facility] med list 11/28/2023) Review of Systems Review of Systems Narrative Review of Systems: Narrative Review of Systems: GENERAL: Denies fevers/chills or diaphoresis. HEENT: Denies headache, Denies visual/hearing changes CARDIO: Denies chest pain PULM: Denies SOB GI: Denies abdominal pain, nausea, vomiting, diarrhea, or constipation MSK/EXT/SKIN: Denies joint/skeletal/muscle pain The rest of review of system is otherwise negative except what is mentioned above Exam Vital Signs Temp Pulse Resp BP Pulse Ox O2 Del Method O2 Flow Rate 97.6 F 61 14 114/53 L 100 Room Air 2 11/27/24 18:15 11/27/24 18:20 11/27/24 18:20 11/27/24 18:15 11/27/24 18:20 11/27/24 18:15 11/27/24 18:20 Narrative Exam GENERAL: AAO x3, well nourished.Vincentian-speaking female HEENT: Head AT/ NC. Mucous membranes moist. PERRL.Left eye with some medial yellow crusting NECK: Supple, no lymphadenopathy, no carotid bruits. CARDIOVASCULAR: RRR. Normal S1/S2, No m/r/g. RESPIRATORY: CTAB. No wheezing, rhonchi, crackles. GASTROINTESTINAL: Abdomen soft, non tender no palpable masses. Bowel sounds present in all 4 quadrants. MUSCULOSKELETAL:? No cyanosis or edema, no visible joint swelling. NEUROLOGICAL: Sensation intact, symmetric.Right lower extremity edema, slightly warm to touch compared to the right side, mild erythema on left lower extremity PSYCHIATRIC: not agitated, normal mood and affect. Results: Labs 11/27/24 14:53 11/27/24 14:53 Labs: Short CBC 11/27/24 11/27/24 Range/Units 12:30 14:53 WBC 15.5 H 6.2 D (3.6-11.0) Thou/mm3 Hgb 7.5 L 7.7 L (12.0-16.0) g/dL Hct 23.2 L 24.4 L (36.0-46.0) % Plt Count 175 134 L D (140-440) Thou/mm3 BMP 11/27/24 11/27/24 12:30 14:53 Sodium 135 L 138 Potassium 4.4 4.1 Chloride 105 109 H Carbon Dioxide 21.3 18.0 L BUN 60 H 58 H Creatinine 3.2 H 3.1 H Glucose 145 H 148 H Calcium 8.7 8.1 L Cardiac Enzymes 11/27/24 11/27/24 Range/Units 14:53 14:53 Troponin I Cancelled 0.023 Liver Function 11/27/24 11/27/24 Range/Units 12:30 14:53 Total Bilirubin 0.5 0.5 (0.3-1.2) mg/dL AST 20 16 (0-34) U/L ALT 8 L 12 (10-49) U/L Alkaline Phosphatase 70 67 (46-116) U/L Albumin 3.2 L 2.9 L (3.4-4.8) gm/dL Urine 11/27/24 Range/Units 12:49 Urine Color [place] A (Lt Yel-Yel) Urine Clarity Cloudy A (Clear/Hazy) Urine pH 6.5 (5.0-7.0) Ur Specific [place] 1.019 (1.001-1.035) Urine Protein 2+ A (Neg - Trace) Urine Glucose (UA) Negative (Negative) ABG Interpretation ABG results: 11/27/24 14:53 VBG pH 7.23 L VBG pCO2 43 VBG pO2 105 H VBG Base Excess -9 L Quality Measures Quality Measures none Advance care planning discussed with:: child Medications Home Medications and Allergies Home Medications ?Medication ?Instructions ?Recorded ?Confirmed ?Type famotidine 20 mg tablet (Pepcid) 20 mg PO QDAY #0 tabs 08/05/17 12/23/23 History insulin glargine 100 unit/mL (3 10 unit subcut QAM 02/13/21 12/23/23 History mL) subcutaneous pen (Basaglar KwikPen U-100 Insulin) calcitriol 0.25 mcg capsule 0.25 mcg PO HS 10/13/21 12/23/23 History ferrous sulfate 325 mg (65 mg 325 mg PO BID 10/13/21 12/23/23 History iron) tablet folic acid 1 mg tablet 1 mg PO QDAY 10/13/21 12/23/23 History memantine 10 mg tablet 10 mg PO BID 10/13/21 12/23/23 History amlodipine 2.5 mg tablet 2.5 mg PO QAM 10/13/23 12/23/23 History atorvastatin 80 mg tablet 80 mg PO HS 10/13/23 12/23/23 History carvedilol 3.125 mg tablet 3.125 mg PO BID 10/13/23 12/23/23 History clopidogrel 75 mg tablet 75 mg PO QDAY 10/13/23 12/23/23 History acetaminophen 325 mg tablet 650 mg PO Q6HR PRN MILD PAIN (1-3) 12/23/23 12/23/23 History (Tylenol) cyanocobalamin (vitamin B-12) 1,000 mcg PO DAILY 12/23/23 12/23/23 History 1,000 mcg tablet insulin aspart U-100 100 unit/mL 1 sliding scale dose subcut 12/23/23 12/23/23 History subcutaneous solution (Novolog USEASDIRECTD U-100 Insulin aspart) insulin glargine 100 unit/mL (3 10 unit subcut HS 12/23/23 12/23/23 History mL) subcutaneous pen (Basaglar KwikPen U-100 Insulin) linagliptin 5 mg tablet (Tradjenta) 5 mg PO QDAY 12/23/23 12/23/23 History Allergies Allergy/AdvReac Type Severity Reaction Status Date / Time No Known Allergies Allergy Verified 11/27/24 10:46 Visit Medications Acetaminophen (Acetaminophen 325 Mg Tablet) 650 mg PO Q6H PRN PRN Reason: PAIN 1-3 OR FEVER > 101 Stop: 12/27/24 17:59 Dextrose (Dextrose 50%-Water Inj 50 Ml Syringe) 25 ml IV Q15MIN PRN PRN Reason: BG 50-70 responsive npo pt Stop: 12/27/24 18:22 Dextrose (Dextrose 50%-Water Inj 50 Ml Syringe) 50 ml IV Q15MIN PRN PRN Reason: BG <50 OR BG <70 & pt unresponsive Stop: 12/27/24 18:22 Glucagon (Glucagon Inj 1 Mg Vial) 1 mg IM Q15MIN PRN PRN Reason: BG <70, and no IV access Heparin Sodium (Porcine) (Heparin Sod Inj 5000 Unit/Ml Vial) 5,000 unit SC Q8HR CHONG Stop: 12/11/24 21:59 Norepinephrine/Dextrose (Levophed In D5w 8mg/250ml) 8 mg in 250 mls @ 6.719 mls/hr IV .Q24H PRN; Protocol PRN Reason: PER PROTOCOL Stop: 12/27/24 14:55 Last Titration: 11/27/24 18:00 Dose: 0.05 mcg/kg/min, 6.719 mls/hr Piperacillin/Tazobactam/Dextrose (Zosyn) 50 mls @ 100 mls/hr IV Q8HR CHONG Stop: 12/04/24 18:20 Insulin Glargine (Insulin Glargine (Lantus) 5 Unit/0.05 Ml (Per 5 Units)) 9 unit SC HS [facility] Stop: 12/27/24 20:59 Insulin Human Lispro (Insulin Lispro (Admelog) 1 Unit/0.01 Ml Unit) 0 unit SC AC CHONG; Protocol Stop: 12/28/24 07:29 Ondansetron HCl (Ondansetron Inj 2 Mg/Ml Inj 2 Ml) 4 mg IV Q6H PRN; Protocol PRN Reason: NAUSEA OR VOMITING Stop: 12/27/24 17:59 Pantoprazole Sodium (Pantoprazole Inj 40 Mg Vial) 40 mg IVP QDAY CHONG Stop: 12/28/24 08:59 Pharmacy Consult (Vancomycin Pharmacy To Dose 1 Each Each) 1 each IV QDAY [facility] Stop: 12/28/24 08:59 Sodium Chloride (Sodium Chloride Rt 10% 15 Ml Nebu) 5 ml INH X1 ONE Stop: 11/27/24 18:26 Discontinued Medications Ceftriaxone Sodium 1,000 mg/ (Sodium Chloride) 50 mls @ 100 mls/hr IV X1 ONE Stop: 11/27/24 14:12 Last Infusion: 11/27/24 14:43 Dose: Infused Sodium Chloride (Ns) 500 mls @ 999 mls/hr IV .Q31M ONE Stop: 11/27/24 14:35 Last Infusion: 11/27/24 14:45 Dose: Infused Sodium Chloride (Ns) 500 mls @ 999 mls/hr IV .Q31M ONE Stop: 11/27/24 15:11 Last Infusion: 11/27/24 15:13 Dose: Infused Sodium Chloride (Ns) 500 mls @ 999 mls/hr IV .Q31M ONE Stop: 11/27/24 15:27 Last Infusion: 11/27/24 15:29 Dose: Infused Assessment & Plan Plan 89-year-old Vincentian-speaking female with past medical history of type 2 diabetes, GERD, CVA, dementia, hyperlipidemia, hypertension, DVT, CKD stage IV was admitted to ICU for shock requiring pressors. [employer] Acute metabolic encephalopathy most likely secondary due to sepsis/shock resolved CT head was negative At baseline patient has a dementia Patient has a history of CVA, uses wheelchair at baseline -Continue close monitor -Assess recurrent mental status -Per daughter patient is back to baseline CVS Shock, DDx would include septic in the setting of UTI/cellulitis/PNA versus hypovolemic in the setting of poor oral intake, versus cardiogenic -Patient received 1.5 L of NS -Continue pressor support -Will obtain cheetah monitor, if patient is responsive patient can be given another liter of LR -Echo was ordered, will follow-up with results -Follow-up with cultures -Continue broad coverage with antibiotics History of hypertension On medication of Coreg, amlodipine -Hold all current medications in the setting of shock Respiratory Acute hypoxic respiratory failure secondary due to PNA, could be community-acquired pneumonia versus aspiration pneumonia Patient 2 days ago vomiting per daughter, CT chest revealed left base pneumonia -Obtain sputum culture -Follow-up with blood culture -Oxygen as needed Renal DEEPA on CKD most likely prerenal in the setting of hypovolemia/shock Lactic acidosis Patient received fluids -Monitor closely renal function -Strict MONIKA's -Close monitor urine output -Trend lactic acid GI GERD PPI prophylaxis Hematology Anemia of chronic disease in the setting of CKD Leukocytosis in the setting of infection resolved Endo History of diabetes type 2 on insulin Patient will be n.p.o.,-will not start home dose -Half the home dose, 9 units of Lantus -Insulin sliding scale -Hypoglycemia protocol was placed ID Sepsis Cellulitis left lower extremity Patient met SIRS criteria Lactic acidosis, leukocytosis, elevated WBC, tachycardia CT chest positive for PNA, UA positive for UTI, cellulitis -Obtain blood cultures/urine culture/sputum culture -Continue broad coverage with Zosyn and vancomycin Disposition: ICU for shock requiring pressor support DVT prophylaxis: Heparin GI prophylaxis: PPI Diet: N.p.o. Lines: PIV CODE STATUS:Full code Patient care was discussed with attending physician Dr. Nuno Sigala MD PGY-2
[2024-11-27] MEDS: PIPER/TAZO 3.375 GM PREMIX 3.375 GM/50 ML BAG IV (19:02)
[2024-11-27 19:16] LABS: Lactic Acid, 3 HR 1.3 mMol/L (0.4-2.0)
[2024-11-27] MEDS: VANCOMYCIN/WATER 1250 MG IVPB 250 ML 120 MG IV (19:44)
[2024-11-27] MEDS: RINGERS LACTATED 1000 ML 1,000 ML 999 ML IV (22:11)
[2024-11-27] MEDS: HEPARIN SOD INJ 5000 UNIT/ML VIAL SC (22:59)
[2024-11-28] VITALS (70 sets, daily range): BP systolic 88–144; BP diastolic 39–103; PULSE 51–85; RESP 13–98; TEMP 36–36.9; O2SAT 97–100; BMI 22.2
[2024-11-28 05:45] LABS: Lactate (Lactic Acid) 1.3 mMol/L (0.4-2.0)
[2024-11-28 05:53] LABS: Basophils # (Auto) 0.1 Thou/mm3 (0.0-0.2); Basophils % (Auto) 0 % (0-2.5); Eosinophils % (Auto) 0 % (0-10); Hematocrit 25.9 % (36.0-46.0); Immature Granulocytes % (Auto) 1 % (0-0); Immature Granulocytes Auto 0.08 Thou/mm3 (0.00-0.00); Lymphocytes # (Auto) 1.2 Thou/mm3 (1.0-4.8); Lymphocytes % (Auto) 7 % (10-50); Mean Corpuscular Hemoglobin 31.6 pg (25.0-35.0); Mean Corpuscular Volume 99 fL (80-100); Monocytes % (Auto) 6 % (0-12); Neutrophils # (Auto) 14.6 Thou/mm3 (1.8-7.7); Neutrophils % (Auto) 86 % (37-80); Nucleated Red Blood Cell % 0 /100 WBC (0); RDW Standard Deviation 45.1 fL (36.4-46.3); Red Blood Count 2.63 Miln/mm3 (4.00-5.20)
[2024-11-28 05:58] LABS: Hemoglobin 8.3 g/dL (12.0-16.0)
[2024-11-28 06:05] LABS: Glucose Estimated Average 177 mg/dL (80-131); Hemoglobin A1C 7.8 % Hgb (4.8-6.0)
[2024-11-28 06:13] LABS: Partial Thromboplastin Time 21.7 Seconds (22.0-36.0)
[2024-11-28] MEDS: PIPER/TAZO 3.375 GM PREMIX 3.375 GM/50 ML BAG IV ×2 (06:36→20:49)
[2024-11-28] MEDS: HEPARIN SOD INJ 5000 UNIT/ML VIAL SC ×3 (06:36→21:01)
[2024-11-28 06:49] LABS: Alanine Aminotransferase 13 U/L (10-49); Albumin, Serum 2.9 gm/dL (3.4-4.8); Albumin/Globulin Ratio 1.1 (1.2-2.2); Alkaline Phosphatase 69 U/L (46-116); Anion Gap 16 (7-16); Aspartate Amino Transferase 23 U/L (0-34); BUN/Creatinine Ratio 22 Ratio (12-20); Bilirubin,Total 0.3 mg/dL (0.3-1.2); Blood Urea Nitrogen 62 mg/dL (9-23); Calcium (Corrected) 8.9 mg/dL (8.5-10.1); Cardiac Risk Estimate 3.2 RATIO (3.7-5.6); Chloride 105 mMol/L (98-107); Cholesterol 89 mg/dL (132-200); Creatinine (Component) 2.8 mg/dL (0.6-1.3); Estimated Creatinine Clearance 10.8 mL/min (>60); Globulin 2.7 gm/dL (2.3-3.5); Glucose 277 mg/dL (74-106); HDL Cholesterol 28 mg/dL (40-60); LDL Cholesterol,Calculated 41 mg/dL (0-130); Magnesium 1.9 mg/dL (1.6-2.6); Osmolality,Calculated 295 (275-295); Phosphorous 5.8 mg/dL (2.4-5.1); Potassium 5.5 mMol/L (3.4-5.1); Sodium 134 mMol/L (136-145); Total Protein 5.6 gm/dL (5.7-8.2); Triglycerides 101 mg/dL (30-150); eGFR 16 See Note
[2024-11-28 06:54] LABS: Carbon Dioxide 12.6 mMol/L (20.0-31.0)
[2024-11-28] MEDS: Norepinephrine/D5W 8mg/250ml 8 MG/250 ML BAG 12.094 MG IV (08:32)
[2024-11-28] MEDS: INSULIN HUM REGULAR 1 UNIT/0.01 ML (PER UNIT) 5 UNIT IV (08:59)
[2024-11-28] MEDS: PANTOPRAZOLE INJ 40 MG VIAL IVP (09:00)
[2024-11-28 09:12] LABS: Base Excess, Venous -11 (-3-3); O2 Saturation, Venous 91 % (96-97); PCO2, Venous 30 mmHg (36-56); PO2, Venous 59 mmHg (15-58)
[2024-11-28 09:31] LABS: Beta Hydroxybutyrate 2.3 mmol/L (<0.6)
[2024-11-28] MEDS: RINGERS LACTATED 1000 ML 1,000 ML 999 ML IV (11:06)
[2024-11-28] MEDS: INSULIN LISPRO (AdmeLOG) 1 UNIT/0.01 ML UNIT SC (11:19)
[2024-11-28 11:49] LABS: Platelet Count 172 Thou/mm3 (140-440)
--- NOTE | 2024-11-28 12:35 | ESPR_ITS ---
<Statement entered by Ced Noel MD - 11/28/24 18:06> patient was examined bedside this morning, overnight she was responsive to cheetha and received 1 L of fluid. today morning she is off pressure support. Additional 1L of fluid was given.pending official echo report. will monitor her hyperkalemia, follow up cultures. she is downgraded to floors. I discussed with and supervised my co-resident involved in the care of this patient. I agree with the assessment and plan as documented above. Ced Noel,PGY-3 Disclaimer: Despite multiple revisions, due to the dictation software being used, the document below may not be free of grammatical errors including phonetic/typographic errors. However, this does not deter from our commitment to providing health care in the patient's best interest in mind. Documentation for date of: 11/28/24 Subjective Subjective Interval history: Patient seen and examined at bedside. No acute overnight events. Cheetah was put on yesterday to assess hemodynamic parameters, SVI of 61% after which she received 1 L of fluid. Today, patient is oriented to self, said to be back at mentation baseline. On physical examination, left leg erythema and swelling appreciated, with differential warmth. Echocardiogram done with tech at bedside, good ventricular contractility, mild MR. Patient is currently on Levophed at 0.09, will continue to down titrate for MAP greater than 65 as patient is still in the first 24 hours of septic shock. Labs reviewed, mild hyponatremia with sodium of 1 3, hyperkalemia at 5.5, given 5 units of insulin and will recheck renal panel. Creatinine improved to 2.8 and notable leukocytosis. Will start patient on clear liquid diet if she passes swallow evaluation, continue to titrate off of pressors, pending blood cultures and evaluate for additional etiology of left lower extremity edema Patient off of pressors and stable to be downgraded to floors. Exam Vital Signs Temp Pulse Resp BP Pulse Ox O2 Del Method O2 Flow Rate 97.1 F 68 20 117/48 L 98 Room Air 2 11/28/24 08:01 11/28/24 11:01 11/28/24 11:01 11/28/24 11:01 11/28/24 11:01 11/28/24 08:01 11/27/24 19:52 Objective Labs 11/28/24 05:30 11/28/24 13:10 Labs: Laboratory Results - last 24 hr 11/27/24 11/27/24 11/27/24 12:30 12:49 14:53 WBC 15.5 H 6.2 D RBC 2.35 L 2.45 L Hgb 7.5 L 7.7 L Hct 23.2 L 24.4 L MCV 99 100 MCH 31.9 31.4 MCHC 32.3 31.6 RDW Std Deviation 45.1 46.1 Plt Count 175 134 L D Neut % (Auto) 82 H 39 Lymph % (Auto) 10 57 H [place] % (Auto) 7 2 Eos % (Auto) 0 0 Baso % (Auto) 0 0 Neut # (Auto) 12.7 H 2.4 Lymph # (Auto) 1.5 3.5 [place] # (Auto) 1.1 H 0.1 Eos # (Auto) 0.1 0.0 Baso # (Auto) 0.0 0.0 Immature Gran # (Auto) 0.08 H 0.09 H Absolute Nucleated RBC 0.00 0.00 Immature Gran % 1 H 2 H Nucleated RBC % 0 0 PT INR APTT VBG pH 7.23 L VBG pCO2 43 VBG pO2 105 H VBG O2 Sat (Drew) 98 H VBG Base Excess -9 L Sodium 135 L 138 Potassium 4.4 4.1 Chloride 105 109 H Carbon Dioxide 21.3 18.0 L Anion Gap 9 11 BUN 60 H 58 H Creatinine 3.2 H 3.1 H Estim Creat Clear Calc 11.0 L 9.7 L eGFR 13 L* 14 L* BUN/Creatinine Ratio 19 19 Glucose [address] Glu mg/dL Hemoglobin A1c Calculated Osmolality 290 294 Lactic Acid 2.2 H Calcium 8.7 8.1 L Corrected Calcium 9.3 9.0 Phosphorus Magnesium Total Bilirubin 0.5 0.5 AST 20 16 ALT 8 L 12 Alkaline Phosphatase 70 67 Troponin I Cancelled Total Protein 6.3 Albumin 3.2 L Globulin 3.1 Albumin/Globulin Ratio 1.0 L Triglycerides Cholesterol LDL Cholesterol, Calc HDL Cholesterol Cholesterol/HDL Ratio Beta-Hydroxybutyrate/Acetoacetate Procalcitonin Ur Collection Type Catheter Urine Color [place] A Urine Clarity Cloudy A Urine pH 6.5 Ur Specific [place] 1.019 Urine Protein 2+ A Urine Glucose (UA) Negative Urine Ketones Negative Urine Blood 2+ A Urine Nitrite Negative Urine Bilirubin Negative Urine Urobilinogen (Auto) Negative Ur Leukocyte Esterase Positive Urine RBC 27 H Urine WBC 2440 H Ur Squamous Epith Cells 0 Urine Bacteria 1+ A Ur Culture Indicated? Yes 11/27/24 11/27/24 11/27/24 14:53 14:53 19:04 WBC RBC Hgb Hct MCV MCH MCHC RDW Std Deviation Plt Count Neut % (Auto) Lymph % (Auto) [place] % (Auto) Eos % (Auto) Baso % (Auto) Neut # (Auto) Lymph # (Auto) [place] # (Auto) Eos # (Auto) Baso # (Auto) Immature Gran # (Auto) Absolute Nucleated RBC Immature Gran % Nucleated RBC % PT INR APTT VBG pH VBG pCO2 VBG pO2 VBG O2 Sat (Drew) VBG Base Excess Sodium Potassium Chloride Carbon Dioxide Anion Gap BUN Creatinine Estim Creat Clear Calc eGFR BUN/Creatinine Ratio Glucose Estimated Ave Glu mg/dL Hemoglobin A1c Calculated Osmolality Lactic Acid 1.3 Calcium Corrected Calcium Phosphorus Magnesium Total Bilirubin AST ALT Alkaline Phosphatase Troponin I 0.023 Total Protein 5.7 Albumin 2.9 L Globulin 2.8 Albumin/Globulin Ratio 1.0 L Triglycerides Cholesterol LDL Cholesterol, Calc HDL Cholesterol Cholesterol/HDL Ratio Beta-Hydroxybutyrate/Acetoacetate Procalcitonin Cancelled 2.94 H Ur Collection Type Urine Color Urine Clarity Urine pH Ur Specific [place] Urine Protein Urine Glucose (UA) Urine Ketones Urine Blood Urine Nitrite Urine Bilirubin Urine Urobilinogen (Auto) Ur Leukocyte Esterase Urine RBC Urine WBC Ur Squamous Epith Cells Urine Bacteria Ur Culture Indicated? 11/28/24 11/28/24 05:30 09:03 WBC 17.0 H D RBC 2.63 L Hgb 8.3 L Hct 25.9 L MCV 99 MCH 31.6 MCHC 32.0 RDW Std Deviation 45.1 Plt Count 172 D Neut % (Auto) 86 H Lymph % (Auto) 7 L [place] % (Auto) 6 Eos % (Auto) 0 Baso % (Auto) 0 Neut # (Auto) 14.6 H Lymph # (Auto) 1.2 [place] # (Auto) 1.0 H Eos # (Auto) 0.0 Baso # (Auto) 0.1 Immature Gran # (Auto) 0.08 H Absolute Nucleated RBC 0.00 Immature Gran % 1 H Nucleated RBC % 0 PT 11.0 INR 1.0 APTT 21.7 L VBG pH 7.30 L VBG pCO2 30 L D VBG pO2 59 H D VBG O2 Sat (Drew) 91 L VBG Base Excess -11 L Sodium 134 L Potassium 5.5 H D Chloride 105 Carbon Dioxide 12.6 L* Anion Gap 16 BUN 62 H Creatinine 2.8 H Estim Creat Clear Calc 10.8 L eGFR 16 L BUN/Creatinine Ratio 22 H Glucose [address] Glu mg/dL 177 H Hemoglobin A1c 7.8 H Calculated Osmolality 295 Lactic Acid 1.3 Calcium 8.0 L Corrected Calcium 8.9 Phosphorus 5.8 H Magnesium 1.9 Total Bilirubin 0.3 AST 23 ALT 13 Alkaline Phosphatase 69 Troponin I Total Protein 5.6 L Albumin 2.9 L Globulin 2.7 Albumin/Globulin Ratio 1.1 L Triglycerides 101 Cholesterol 89 L LDL Cholesterol, Calc 41 HDL Cholesterol 28 L Cholesterol/HDL Ratio 3.2 L Beta-Hydroxybutyrate/Acetoacetate 2.3 H Procalcitonin Ur Collection Type Urine Color Urine Clarity Urine pH Ur Specific [place] Urine Protein Urine Glucose (UA) Urine Ketones Urine Blood Urine Nitrite Urine Bilirubin Urine Urobilinogen (Auto) Ur Leukocyte Esterase Urine RBC Urine WBC Ur Squamous Epith Cells Urine Bacteria Ur Culture Indicated? ABG Interpretation ABG results: 11/27/24 11/28/24 14:53 09:03 VBG pH 7.23 L 7.30 L VBG pCO2 43 30 L D VBG pO2 105 H 59 H D VBG Base Excess -9 L -11 L Quality Measures Quality Measures none Advance care planning discussed with:: other Assessment & Plan Assessment Current Active Medications: Generic Name Dose Route Start Last Admin Trade Name Freq PRN Reason Stop Dose Admin Acetaminophen 650 mg 11/27/24 18:00 Acetaminophen 325 Mg Tablet PO 12/27/24 17:59 Q6H PRN PAIN 1-3 OR FEVER > 101 Dextrose 25 ml 11/27/24 18:23 Dextrose 50%-Water Inj 50 Ml Syringe IV 12/27/24 18:22 Q15MIN PRN BG 50-70 responsive npo pt Dextrose 50 ml 11/27/24 18:23 Dextrose 50%-Water Inj 50 Ml Syringe IV 12/27/24 18:22 Q15MIN PRN BG <50 OR BG <70 & pt unresponsive Glucagon 1 mg 11/27/24 18:23 Glucagon Inj 1 Mg Vial IM Q15MIN PRN BG <70, and no IV access Heparin Sodium (Porcine) 5,000 unit 11/27/24 22:00 11/28/24 06:36 Heparin Sod Inj 5000 Unit/Ml Vial SC 12/11/24 21:59 5,000 unit Q8HR CHONG Administration Norepinephrine/Dextrose 8 mg in 250 mls @ 6.719 mls/hr 11/27/24 14:56 11/28/24 10:45 Levophed In D5w 8mg/250ml IV 12/27/24 14:55 0 mcg/kg/min .Q24H PRN 0 mls/hr PER PROTOCOL Titration Protocol 0.05 MCG/KG/MIN Piperacillin/Tazobactam/Dextrose 3.375 gm in 50 mls @ 12.5 mls/hr 11/28/24 06:00 11/28/24 06:36 Zosyn IV 12/05/24 05:59 12.5 mls/hr Q12HR CHONG Administration Vancomycin/Sodium Chloride 100 mls @ 120 mls/hr 11/28/24 22:00 Vancomycin/Ns 500 Mg Ivpb IV 11/28/24 22:49 X1 ONE Protocol Insulin Glargine 9 unit 11/27/24 21:00 11/27/24 23:02 Insulin Glargine (Lantus) 5 Unit/0.05 Ml (Per 5 Units) SC 12/27/24 20:59 Not Given HS [facility] Insulin Human Lispro 0 unit 11/28/24 12:00 11/28/24 11:19 Insulin Lispro (Admelog) 1 Unit/0.01 Ml Unit SC 12/28/24 11:59 3 unit Q6H CHONG Administration Protocol Ondansetron HCl 4 mg 11/27/24 18:00 Ondansetron Inj 2 Mg/Ml Inj 2 Ml IV 12/27/24 17:59 Q6H PRN NAUSEA OR VOMITING Protocol Pantoprazole Sodium 40 mg 11/28/24 09:00 11/28/24 09:00 Pantoprazole Inj 40 Mg Vial IVP 12/28/24 08:59 40 mg QDAY CHONG Administration Pharmacy Consult 1 each 11/28/24 09:00 11/28/24 08:51 Vancomycin Pharmacy To Dose 1 Each Each IV 12/28/24 08:59 Not Given QDAY CHONG Plan Summary: The patient is a 89-year-old [place]-speaking female with past medical history of type 2 diabetes, GERD, CVA, dementia, hyperlipidemia, hypertension, DVT, CKD stage IV was admitted to ICU for shock requiring pressors. [employer] #Acute metabolic encephalopathy most likely secondary due to sepsis/shock resolved #History of dementia CT head was negative At baseline patient has a dementia, oriented only to self most times. Currently back to baseline mentation Patient has a history of CVA, uses wheelchair at baseline -Assess recurrent mental status -Per daughter patient is back to baseline CVS #Shock, likely distributive in the setting of sepsis secondary UTI/cellulitis Cardiogenic and obstructive etiologies ruled out. -Patient received 1.5 L of NS -Continue pressor support -Will obtain cheetah monitor, if patient is responsive patient can be given another liter of LR -Echo was ordered, will follow-up with results -Follow-up with cultures -Continue broad coverage with antibiotics 11/28/2024: Cheetah was put on yesterday to assess hemodynamic parameters, SVI of 61% after which she received 1 L of fluid. Patient is currently on Levophed at 0.09, will continue to down titrate for MAP greater than 65 as patient is still in the first 24 hours of septic shock. Patient off of pressors, stable MAP and downgraded to floors. Plan: -Downgraded to floors after being off of pressors. #History of hypertension On medication of Coreg, amlodipine -Hold all current medications in the setting of shock Respiratory #Acute hypoxic respiratory failure secondary due to PNA, CAP vs aspiration- resolved Patient 2 days ago vomiting per daughter, CT chest revealed left base pneumonia -Obtain sputum culture -Follow-up with blood culture -Oxygen as needed 11/28/2024: Patient saturating 98 to 100% on room air. On examination, lungs clear to auscultation bilaterally Renal #DEEPA on CKD most likely prerenal in the setting of hypovolemia/shock Lactic acidosis Patient received fluids -Monitor closely renal function -Strict MONIKA's -Close monitor urine output -Trend lactic acid 11/28/2024: Patient is currently received about 3.5 L of fluids, creatinine improved from 3.1-2.8. Still fluid responsive, received another 1 L today. #Metabolic acidosis #NAGMA plus AGMA On labs this morning, bicarb of 12.6 with anion gap of 16, corrected for albumin of 2.9-18.5. Lactic acid normal. BHB-2.3. Order urine lytes to check urine anion gap as well as optimize blood glucose control. Plan: -Urine electrolytes GI GERD PPI prophylaxis Hematology #Anemia of chronic disease in the setting of CKD Leukocytosis WBC count today at 17.0. Patient is continued to remain afebrile, currently on antibiotics. Endo #History of diabetes type 2 on insulin Patient will be n.p.o.,-will not start home dose -Half the home dose, 9 units of Lantus -Insulin sliding scale -Hypoglycemia protocol was placed ID #Sepsis #Cellulitis left lower extremity #GNR UTI, likely E. coli Patient met SIRS criteria Lactic acidosis, leukocytosis, elevated WBC, tachycardia CT chest positive for PNA, UA positive for UTI, cellulitis -Obtain blood cultures/urine culture/sputum culture -Continue broad coverage with Zosyn and vancomycin 11/28/2024: Urine culture returned positive for gram-negative rods, likely E. coli. Patient currently still on Zosyn and vancomycin, pending MRSA nares p.o. continue antibiotics and de-escalate Appropriate. Disposition: ICU for shock requiring pressor support DVT prophylaxis: Heparin GI prophylaxis: PPI Diet: Clear liquid diet Lines: PIV CODE STATUS:Full code Case was discussed with Dr Noel PGY-3 and attending physician, Dr Nuno Zambrano MD PGY-1 Disclaimer: This note was dictated by speech recognition. Minor errors in heel seat pounder may be present due to voice recognition software. Attending Provider Attestation/Addendum pt seen and examined, d/w resident team. This is a 89yo F admitted yesterday for sepsis and shock despite IVF. Once pt arrived to the ICU a PLR was done to assess for fluid responsiveness and pt found to be fluid responsive and given an additional bolus. This AM she is awake alert and responsive. She c/o pain in her leg otherwise no complaints. LCTAB, HRRR with edema and pain in LLE , erythema that is demarcated. Overall she is improving with her sepsis which is 2/2 UTI and cellulitis. Cx are currently pending though GNR are resulted from Ucx. Cont abx until speciated. pt is noted to have a significant acidosis which is both gap and non gap in origin. Beta hydroxy is slightly elevated which explains the AG component however will send off urine lytes to eval pts non gap component. She does have a long standing h/o CKD and there is a ? of underlying RTA. She currently presents with an acute/chronic DEEPA. case d/w ICU team labs, imaging, records reviewed ~44ccmin required for eval, exam, review, intervention, discussion and formulation of POC for this critically ill pt
[2024-11-28 14:28] LABS: Anion Gap 12 (7-16); BUN/Creatinine Ratio 22 Ratio (12-20); Blood Urea Nitrogen 56 mg/dL (9-23); Calcium 8.2 mg/dL (8.3-10.6); Carbon Dioxide 17.7 mMol/L (20.0-31.0); Chloride 106 mMol/L (98-107); Creatinine (Component) 2.6 mg/dL (0.6-1.3); Estimated Creatinine Clearance 11.6 mL/min (>60); Glucose 186 mg/dL (74-106); Osmolality,Calculated 292 (275-295); Phosphorous 4.3 mg/dL (2.4-5.1); Sodium 136 mMol/L (136-145); eGFR 17 See Note
--- NOTE | 2024-11-28 17:22 | PC.SS ---
Update: Patient on room air. Clear liquid diet at present time. Plan is to downgrade patient possibly today.
--- NOTE | 2024-11-28 17:38 | ESPR_ITS ---
Documentation for date of: 11/28/24 Subjective Subjective Interval history: Received ICU downgrade for Team B to assume care starting this evening 11/28/2024. Patient is a 89-year-old Greek-speaking female with past medical history of type 2 diabetes, CVA, dementia, hyperlipidemia, hypertension, previous left extremity DVT, CKD stage 4, and GERD who was brought to the ED from [facility] on 11/27/2024 due to swelling and redness of the left lower extremity for DVT evaluation. Left venous duplex was negative for active DVT however workup had revealed leukocytosis, UA positive for UTI, and DEEPA on CKD and our team was initially called to admit the patient to the medical floor. During evaluation for admission patient developed an acute unresponsive event with hypoxia and hypotension. Patient was subsequently stabilized, started on supplemental O2 and pressors with improvement of mental status, and admitted to the ICU. Today the patient is maintaining her baseline mentation and has been off pressors since around 11 am, maintaining MAP >65. Patient was seen and examined at bedside in the ICU. She reports feeling well, answering simple questions and eating dinner. She is on room air. Patient is being treated for sepsis secondary to UTI with IV Zosyn. Urine culture showed preliminary gram negative rods, blood cultures negative at 24 hours thus far. Vancomycin was discontinued and patient was started on doxycycline to cover potential cellulitis in the left lower extremity which still appears edematous as on the admission evaluation. Will await final culture results with sensitivities. Exam Vital Signs Temp Pulse Resp BP Pulse Ox O2 Del Method O2 Flow Rate 96.8 F 54 L 19 95/52 L 99 Room Air 2 11/28/24 16:00 11/28/24 17:00 11/28/24 17:00 11/28/24 17:00 11/28/24 17:00 11/28/24 16:00 11/27/24 19:52 Narrative Exam Physical Exam General: Elderly female, awake and in no acute distress. Sitting up and eating dinner. Non-toxic appearing, answers with short phrases. HEENT: Normocephalic, atraumatic, mucous membranes moist. Heart: Regular rate and rhythm, no murmurs. Lungs: Clear to auscultation with no wheezing or crackles. Abdomen: Soft, nondistended, nontender, positive bowel sounds. ?No guarding or rebound tenderness. Neurologic: Alert and oriented x3, no gross neurological deficit, and patient able to move all 4 extremities. Extremities: No edema. Skin: No rash or ecchymoses. Objective Labs 11/29/24 07:51 11/29/24 04:38 Labs: Laboratory Results - last 24 hr 11/27/24 11/28/24 11/28/24 19:04 05:30 09:03 WBC 17.0 H D RBC 2.63 L Hgb 8.3 L Hct 25.9 L MCV 99 MCH 31.6 MCHC 32.0 RDW Std Deviation 45.1 Plt Count 172 D Neut % (Auto) 86 H Lymph % (Auto) 7 L [place] % (Auto) 6 Eos % (Auto) 0 Baso % (Auto) 0 Neut # (Auto) 14.6 H Lymph # (Auto) 1.2 [place] # (Auto) 1.0 H Eos # (Auto) 0.0 Baso # (Auto) 0.1 Immature Gran # (Auto) 0.08 H Absolute Nucleated RBC 0.00 Immature Gran % 1 H Nucleated RBC % 0 PT 11.0 INR 1.0 APTT 21.7 L VBG pH 7.30 L VBG pCO2 30 L D VBG pO2 59 H D VBG O2 Sat (Drew) 91 L VBG Base Excess -11 L Sodium 134 L Potassium 5.5 H D Chloride 105 Carbon Dioxide 12.6 L* Anion Gap 16 BUN 62 H Creatinine 2.8 H Estim Creat Clear Calc 10.8 L eGFR 16 L BUN/Creatinine Ratio 22 H Glucose [address] Glu mg/dL 177 H Hemoglobin A1c 7.8 H Calculated Osmolality 295 Lactic Acid 1.3 1.3 Calcium 8.0 L Corrected Calcium 8.9 Phosphorus 5.8 H Magnesium 1.9 Total Bilirubin 0.3 AST 23 ALT 13 Alkaline Phosphatase 69 Total Protein 5.6 L Albumin 2.9 L Globulin 2.7 Albumin/Globulin Ratio 1.1 L Triglycerides 101 Cholesterol 89 L LDL Cholesterol, Calc 41 HDL Cholesterol 28 L Cholesterol/HDL Ratio 3.2 L Beta-Hydroxybutyrate/Acetoacetate 2.3 H 11/28/24 13:10 WBC RBC Hgb Hct MCV MCH MCHC RDW Std Deviation Plt Count Neut % (Auto) Lymph % (Auto) [place] % (Auto) Eos % (Auto) Baso % (Auto) Neut # (Auto) Lymph # (Auto) [place] # (Auto) Eos # (Auto) Baso # (Auto) Immature Gran # (Auto) Absolute Nucleated RBC Immature Gran % Nucleated RBC % PT INR APTT VBG pH VBG pCO2 VBG pO2 VBG O2 Sat (Drew) VBG Base Excess Sodium 136 Potassium 4.0 D Chloride 106 Carbon Dioxide 17.7 L Anion Gap 12 BUN 56 H Creatinine 2.6 H Estim Creat Clear Calc 11.6 L eGFR 17 L BUN/Creatinine Ratio 22 H Glucose [address] Glu mg/dL Hemoglobin A1c Calculated Osmolality 292 Lactic Acid Calcium 8.2 L Corrected Calcium 9.0 Phosphorus 4.3 Magnesium Total Bilirubin AST ALT Alkaline Phosphatase Total Protein Albumin 3.0 L Globulin Albumin/Globulin Ratio Triglycerides Cholesterol LDL Cholesterol, Calc HDL Cholesterol Cholesterol/HDL Ratio Beta-Hydroxybutyrate/Acetoacetate ABG Interpretation ABG results: 11/27/24 11/28/24 14:53 09:03 VBG pH 7.23 L 7.30 L VBG pCO2 43 30 L D VBG pO2 105 H 59 H D VBG Base Excess -9 L -11 L Quality Measures Quality Measures none Advance care planning discussed with:: patient Assessment & Plan Assessment Current Active Medications: Generic Name Dose Route Start Last Admin Trade Name Freq PRN Reason Stop Dose Admin Acetaminophen 650 mg 11/27/24 18:00 Acetaminophen 325 Mg Tablet PO 12/27/24 17:59 Q6H PRN PAIN 1-3 OR FEVER > 101 Dextrose 25 ml 11/27/24 18:23 Dextrose 50%-Water Inj 50 Ml Syringe IV 12/27/24 18:22 Q15MIN PRN BG 50-70 responsive npo pt Dextrose 50 ml 11/27/24 18:23 Dextrose 50%-Water Inj 50 Ml Syringe IV 12/27/24 18:22 Q15MIN PRN BG <50 OR BG <70 & pt unresponsive Glucagon 1 mg 11/27/24 18:23 Glucagon Inj 1 Mg Vial IM Q15MIN PRN BG <70, and no IV access Heparin Sodium (Porcine) 5,000 unit 11/27/24 22:00 11/28/24 13:19 Heparin Sod Inj 5000 Unit/Ml Vial SC 12/11/24 21:59 5,000 unit Q8HR CHONG Administration Norepinephrine/Dextrose 8 mg in 250 mls @ 6.719 mls/hr 11/27/24 14:56 11/28/24 10:45 Levophed In D5w 8mg/250ml IV 12/27/24 14:55 0 mcg/kg/min .Q24H PRN 0 mls/hr PER PROTOCOL Titration Protocol 0.05 MCG/KG/MIN Piperacillin/Tazobactam/Dextrose 3.375 gm in 50 mls @ 12.5 mls/hr 11/28/24 06:00 11/28/24 06:36 Zosyn IV 12/05/24 05:59 12.5 mls/hr Q12HR CHONG Administration Vancomycin/Sodium Chloride 100 mls @ 120 mls/hr 11/28/24 22:00 Vancomycin/Ns 500 Mg Ivpb IV 11/28/24 22:49 X1 ONE Protocol Insulin Glargine 9 unit 11/27/24 21:00 11/27/24 23:02 Insulin Glargine (Lantus) 5 Unit/0.05 Ml (Per 5 Units) SC 12/27/24 20:59 Not Given HS [facility] Insulin Human Lispro 0 unit 11/28/24 12:00 11/28/24 11:19 Insulin Lispro (Admelog) 1 Unit/0.01 Ml Unit SC 12/28/24 11:59 3 unit Q6H CHONG Administration Protocol Ondansetron HCl 4 mg 11/27/24 18:00 Ondansetron Inj 2 Mg/Ml Inj 2 Ml IV 12/27/24 17:59 Q6H PRN NAUSEA OR VOMITING Protocol Pantoprazole Sodium 40 mg 11/28/24 09:00 11/28/24 09:00 Pantoprazole Inj 40 Mg Vial IVP 12/28/24 08:59 40 mg QDAY CHONG Administration Pharmacy Consult 1 each 11/28/24 09:00 11/28/24 08:51 Vancomycin Pharmacy To Dose 1 Each Each IV 12/28/24 08:59 Not Given QDAY CHONG Plan 89-year-old Greek-speaking female with past medical history of type 2 diabetes, CVA, dementia, hyperlipidemia, hypertension, previous left extremity DVT, CKD stage 4, and GERD who was brought to the ED from [facility] on 11/27/2024 due to swelling and redness of the left lower extremity for DVT evaluation. Left venous duplex was negative for active DVT however patient was found to be in septic shock secondary to UTI and admitted to the ICU. She was weaned off pressors and subsequently downgraded to the medical floors on 11/28/2024. #Sepsis secondary to GNR UTI #Shock, likely distributive - resolved #Leukocytosis Cardiogenic and obstructive etiologies were ruled out. Patient required low dose of norepinephrine to 0.09 while in ICU. 11/28/2024: Patient was weaned off norepi around 11 am. Patient received 3.5 L of NS since arrival. Echo showed EF 60-65% and stage I diastolic dysfunction. Mild LVH. Estimated RVSP moderately elevated at around 50 mmHg. Moderate TR. Mild aortic valve sclerosis without any kind of stenosis. Mild MAC as well as mild MR. -Follow-up with cultures -Continue IV Zosyn 3.375 q12h renally-dosed #Left lower extremity edema/(?)cellulitis Left lower extremity venous doppler US on ED evaluation was negative for DVT but patient has significant leg swelling, according to patient, family, and report, developed just few days prior to admission. Patient does have documented history of left leg DVT dating back to 12/2023 [facility]. She is not currently on anticoagulation, she takes Plavix alone. -Treating empirically for cellulitis -Discontinued IV vancomycin -Started IV doxycycline 100 mg BID -Follow blood cultures #Acute metabolic encephalopathy - resolved #History of dementia CT head was negative on admission. At baseline patient has a dementia, oriented only to self most times. Currently back to baseline mentation. Patient has a history of CVA, uses wheelchair at baseline. -Anti-delirium measures including natural light, family visitation, frequent re- orientation, early mobility #Acute hypoxic respiratory failure - resolved #Community-acquired versus aspiration pneumonia Patient 2 days ago had vomiting per daughter. CT chest revealed left base pneumonia on admission. 11/28/2024: Patient saturating 98 to 100% on room air. On examination, lungs clear to auscultation bilaterally. -Continue IV Zosyn -Sputum culture pending -Follow-up with blood culture -Oxygen as needed #DEEPA on CKD, likely prerenal - improving Most likely prerenal in the setting of hypovolemia/shock. Creatinine 3.2 on presentation with GFR of 13. Baseline appeared to be creatinine 1.8-2.0 and GFR 20-22. Patient received total 3.5L fluids since hospital arrival. -Monitor renal function -Strict I&Os -Urine output measurement, Rizzo in place #Metabolic acidosis - improving #Lactic acidosis - resolved #NAGMA plus AGMA On labs this morning, bicarb of 12.6 with anion gap of 16, corrected for albumin of 2.9-18.5. Lactic acid normal. BHB-2.3. Order urine lytes to check urine anion gap as well as optimize blood glucose control. -Urine electrolytes pending -Monitor CMP #History of CVA -Continue home clopidogrel 75 mg qday #History of type 2 diabetes On admission initial glucose 145. A1c 7.8 this admission. Patient takes insulin glargine 18 U qday, insulin aspart 7 U AC, insulin aspart sliding scale, Tradjenta 5 mg daily for diabetes at [facility]. -Held home medications -Bedside blood glucose checks ACHS -Insulin glargine 9 U HS -Insulin lispro sliding scale step 2, adjusted as necessary -Carb consistent low diet #History of hypertension Home medications include carvedilol and amlodipine. -Held all current medications in the setting of shock #History of GERD -Continue pantoprazole 40 mg IV qday #Anemia of chronic disease Likely in the setting of CKD. Home medications include ferrous sulfate 325 mg BID. Stable at this time. -Hold home medication in setting of acute illness Disposition: Downgraded to Med-Tele DVT prophylaxis: Heparin GI prophylaxis: PPI Diet: Clear liquid diet Lines: PIV CODE STATUS: Full Code Patient plan of care was discussed with the attending physician, Dr. Connell. Lacie Higgins, PGY-2 Attending Provider Attestation/Addendum Kristen Wilkes, , attest that I was physically present for the garibay portions of the service and evaluated the patient with the resident and I reviewed and discussed the case with the resident and agree with the resident's findings and plans of care as documented above Patient is an 89-year-old female with past medical history of dementia, type 2 diabetes, CVA, hypertension, left lower extremity DVT and CKD stage IV who was brought to the ED due to worsening left lower extremity edema. She was found to be in septic shock on presentation and was subsequently admitted to the ICU for pressor support. Suspect source of sepsis secondary to left lower extremity cellulitis versus UTI. Venous Doppler of left lower extremity shows no evidence of DVT. CT chest/abdomen and pelvis was done showing evidence of left basilar pneumonia and mild small bowel ileus. Urine cultures positive for gram-negative rods. Patient has been weaned off of pressors at this time. Patient is alert and oriented x 1. Patient has been downgraded from the ICU and hospital service will resume care at this time. Will continue with IV antibiotics and follow-up final cultures and sensitivities. Echo is also pending due to lower extremity edema.
--- NOTE | 2024-11-28 18:00 | ECHO_ITS ---
Transthoracic Echo Report Ht (in): 62 Wt (lb): 121 Exam Location: Portable Status: Inpatient Tree Worker: LANDY Liu^^^^ Indications: Procedure Performed: BP: 119 / 46 HR: 68 Rhythm: Sinus Technical Quality: Fair MEASUREMENTS (Male / Female) Normal Values 2D ECHO LVOT Diameter 1.5 cm Aortic Root Diameter 2.9 cm LA Systolic Diameter LX 3.0 cm 3.0 - 4.0 / 2.7 - 3.8 cm LA Volume Index 35.4 cm?/m? 16 - 28 cm?/m? Ascending Aorta Diameter 2.3 cm DOPPLER AV Peak Velocity 169.0 cm/s AV Peak Gradient 11.4 mmHg AV Mean Gradient 7.0 mmHg AV Velocity Time Integral 42.4 cm LVOT Peak Velocity 117.0 cm/s LVOT Peak Gradient 5.5 mmHg LVOT Velocity Time Integral 27.6 cm LVOT Cardiac Index 2134.3 cm?/min?m? AV Area Cont Eq vti 1.2 cm? AV Area Cont Eq pk 1.2 cm? MV Area PHT 6.3 cm? Mitral E Point Velocity 76.3 cm/s Mitral A Point Velocity 109.0 cm/s Mitral E to A Ratio 0.7 LV E' Lateral Velocity 8.1 cm/s Mitral E to LV E' Lateral Ratio 9.4 LV E' Septal Velocity 8.6 cm/s Mitral E to LV E' Septal Ratio 8.9 TR Peak Velocity 305.0 cm/s TR Peak Gradient 37.2 mmHg PV Peak Velocity 87.5 cm/s PV Peak Gradient 3.1 mmHg RVOT Peak Velocity 56.2 cm/s FINDINGS Left Ventricle Normal left ventricular size, wall thickness, systolic function with no obvious regional wall motion abnormalities. There is grade I diastolic dysfunction of the left ventricle (impaired relaxation pattern). The left ventricular ejection fraction is normal, estimated at 60-65%. Right Ventricle The right ventricle is normal in size and systolic function. Estimated right ventricular systolic pressure is mildly elevated, 47 mmHg. Left Atrium The left atrium is normal by two-dimensional, color flow and Doppler imaging with no structural abnormalities, no thrombus formation present. Right Atrium The right atrium is normal by two-dimensional imaging, color flow and Doppler imaging with no structural abnormalities, no thrombus formation present. Atrial Septum The interatrial septum appears normal with no evidence of a shunt. Aorta The aorta is normal by two-dimensional, color flow and Doppler interrogation. Mitral Valve Trace to mild mitral regurgitation. Mild mitral annular calcification. Aortic Valve Aortic valve sclerosis. Tricuspid Valve There is moderate tricuspid regurgitation. Pulmonic Valve Trivial pulmonic valve regurgitation. Vessels The pulmonary artery appears normal. The inferior vena cava pulmonary and hepatic veins appear normal. Pericardium The pericardium is normal by two-dimensional imaging. There is no significant pericardial effusion. CONCLUSIONS Indication: Shortness of breath Normal LV size and function with an EF of 60 to 65%. Stage I diastolic dysfunction. Mild LVH Normal RV size and function. Estimated RVSP moderately elevated at around 50 mmHg. Moderate TR Mild aortic valve sclerosis without any kind of stenosis. Mild MAC as well as mild MR Matt Deleon (Electronically Signed) Final Date: 28 November 2024 19:09
[2024-11-28] MEDS: INSULIN GLARGINE (Lantus) 5 UNIT/0.05 ML (PER 5 UNITS) 9 UNIT SC (20:49)
[2024-11-28] MEDS: DOXYCYCLINE INJ 100 MG in SODIUM CHLORIDE 0.9% (POP) 100 ML IV (20:49)
[2024-11-28 21:31] LABS: Vancomycin,Random 13.8 mcg/mL
--- NOTE | 2024-11-28 21:42 | PC.NURSE ---
PT CONFUSE, COMBATIVE, PULLED OUT IV,PULSE OX, HEART MONITOR. PT REORIENTED BUT WITH POOR OUTCOME. PT CURSING AT STAFF,ATTEMPTED TO GET OUT OF BED. 1:1 MARRIAGE AND FAMILY COUNSELOR SITTER AT BEDSIDE AND ORDERED BILATERAL MITTENS AND CARRIED OUT.
--- NOTE | 2024-11-28 23:48 | PC.NURSE ---
PT CONFUSE, CURSING STAFF,KICKS AND SWAY HER MITTEN HANDS TOWARD STAFF. PT DENIES PAIN, PT STATED SHE WANTS HER SHOES AND GET OUT OF BED. REORIENTED AND REDIRECTED BUT POOR OUTCOME,. PT OFFERED WATER OR JUICE BUT REFUSED AND STATED SHE IS NOT HUNGRY. DR. CHAVEZ NOTIFIED OF PT'S BEHAVIOR AND WILL PUT IN ORDER.
[2024-11-29] VITALS (60 sets, daily range): BP systolic 85–140; BP diastolic 32–72; PULSE 56–94; RESP 7–99; TEMP 36.3–37; O2SAT 92–100; BMI 22.4; BMI 22.5
[2024-11-29] MEDS: DiphenhydrAMINE INJ 50 MG/ML VIAL 12.5 MG IV (00:16)
[2024-11-29] MEDS: HALOPERIDOL LACT INJ 5 MG/ML VIAL 2.5 MG IM ×2 (01:24→10:21)
--- NOTE | 2024-11-29 02:39 | PC.NURSE ---
pt appears calm, resting with eyes closed. pt awaken to sound, and call of name. pt confuse. staff at bedside and continue bilateral mittens.
--- NOTE | 2024-11-29 04:46 | PC.NURSE ---
pt offerred senokot but pt refused. order clerk sitter at bedside.
[2024-11-29] MEDS: HEPARIN SOD INJ 5000 UNIT/ML VIAL SC ×3 (05:20→21:35)
[2024-11-29 05:25] LABS: Basophils % (Auto) 0 % (0-2.5); Eosinophils # (Auto) 0.5 Thou/mm3 (0.0-0.5); Eosinophils % (Auto) 4 % (0-10); Hematocrit 20.8 % (36.0-46.0); Immature Granulocytes % (Auto) 1 % (0-0); Immature Granulocytes Auto 0.08 Thou/mm3 (0.00-0.00); Lymphocytes # (Auto) 1.1 Thou/mm3 (1.0-4.8); Lymphocytes % (Auto) 9 % (10-50); Mean Corpuscular HGB Conc 32.7 g/dl (31.0-37.0); Mean Corpuscular Hemoglobin 31.9 pg (25.0-35.0); Mean Corpuscular Volume 98 fL (80-100); Monocytes # (Auto) 0.9 Thou/mm3 (0.0-0.8); Monocytes % (Auto) 7 % (0-12); Neutrophils # (Auto) 9.8 Thou/mm3 (1.8-7.7); Neutrophils % (Auto) 79 % (37-80); Nucleated Red Blood Cell % 0 /100 WBC (0); Platelet Count 183 Thou/mm3 (140-440); RDW Standard Deviation 44.4 fL (36.4-46.3); Red Blood Count 2.13 Miln/mm3 (4.00-5.20); White Blood Count 12.4 Thou/mm3 (3.6-11.0)
[2024-11-29 05:35] LABS: Hemoglobin 6.8 g/dL (12.0-16.0)
[2024-11-29 05:51] LABS: Path Review Blood Smear Sent to Pathologist
[2024-11-29 06:05] LABS: Alanine Aminotransferase 15 U/L (10-49); Albumin, Serum 3.1 gm/dL (3.4-4.8); Alkaline Phosphatase 83 U/L (46-116); Anion Gap 11 (7-16); Aspartate Amino Transferase 16 U/L (0-34); BUN/Creatinine Ratio 20 Ratio (12-20); Bilirubin,Total 0.3 mg/dL (0.3-1.2); Blood Urea Nitrogen 48 mg/dL (9-23); Calcium 8.5 mg/dL (8.3-10.6); Calcium (Corrected) 9.2 mg/dL (8.5-10.1); Carbon Dioxide 19.4 mMol/L (20.0-31.0); Chloride 108 mMol/L (98-107); Creatinine (Component) 2.4 mg/dL (0.6-1.3); Estimated Creatinine Clearance 12.6 mL/min (>60); Glucose 193 mg/dL (74-106); Magnesium 1.9 mg/dL (1.6-2.6); Osmolality,Calculated 293 (275-295); Phosphorous 3.1 mg/dL (2.4-5.1); Sodium 138 mMol/L (136-145); Total Protein 6.1 gm/dL (5.7-8.2); eGFR 19 See Note
[2024-11-29] MEDS: INSULIN LISPRO (AdmeLOG) 1 UNIT/0.01 ML UNIT SC ×3 (09:12→21:34)
[2024-11-29] MEDS: DOXYCYCLINE INJ 100 MG in SODIUM CHLORIDE 0.9% (POP) 100 ML IV ×2 (09:13→20:51)
[2024-11-29] MEDS: PANTOPRAZOLE INJ 40 MG VIAL IVP (09:13)
[2024-11-29] MEDS: PIPER/TAZO 3.375 GM PREMIX 3.375 GM/50 ML BAG IV ×2 (09:14→20:52)
[2024-11-29 10:31] LABS: Hematocrit 23.1 % (36.0-46.0)
[2024-11-29 10:42] LABS: Hemoglobin 7.5 g/dL (12.0-16.0)
--- NOTE | 2024-11-29 13:17 | ESPR_ITS ---
<Statement entered by Lacie Higgins MD - 11/30/24 06:08> Patient was seen and examined by me personally. I have directly supervised and reviewed documentation by the team resident and agree with its findings with any exceptions or additional findings as below. Plan of care was discussed with the attending, Dr. Connell. Patient was downgraded from ICU yesterday. Overnight it was reported the patient was very agitated, pulling on lines, requiring Benadryl 12.5 mg x1 and Haldol 2.5 mg x1 along with soft mitten restraints. Patient continued to have some agitation in the morning therefore Haldol 2.5 mg q4h as needed was added for agitation. Later in the day patient was doing well, awake and interactive. Edema of the left lower extremity appears to have increased. Patient is denying any pain or discomfort. Will plan to repeat a venous doppler US of the left lower extremity tomorrow morning to rule out DVT. Meanwhile urine culture results showed speciation of Proteus mirabilis sensitive to Zosyn which will be continued. MRSA screen is positive. Will continue IV doxycycline for coverage of possible cellulitis of the left leg. Lacie Higgins, PGY-2 Documentation for date of: 11/29/24 Subjective Subjective Interval history: 11/29/2024: Overnight patient was more agitated and required soft mitten restraints along with x 1 dose of Benadryl and 2.5 mg of haloperidol. Patient's morning CBC showed hemoglobin of 6.8, as a result night team had ordered 1 unit of PRBC. Patient did not have any signs of acute bleeding, as result repeat H&H was ordered which showed uptrending hemoglobin to 7.5. As such patient has not received the 1 unit of PRBC which was ordered overnight. As the patient has agitation, we have added as needed haloperidol 2.5 mg every 4 hours. Patient's urine cultures grew back Proteus mirabillis which is sensitive to the Zosyn the patient's been on for the left lobe pneumonia. Patient also started on doxycycline 100 mg IV twice daily to cover for any MRSA as the patient has potential cellulitis of the left lower extremity. We will repeat ultrasound of lower lower extremity to rule out any DVT as the leg appears worse. Will continue to monitor the patient for any acute changes. Exam Vital Signs Temp Pulse Resp BP Pulse Ox O2 Del Method O2 Flow Rate 97.8 F 71 18 100/32 L 98 Room Air 2 11/29/24 04:19 11/29/24 04:19 11/29/24 04:19 11/29/24 04:19 11/29/24 04:19 11/29/24 04:19 11/27/24 19:52 Narrative Exam Physical Exam General: Elderly female, awake and agitated. Answers in Cameroonian but does not respond to direct questioning. HEENT: Normocephalic, moist mucous membranes, PERRLA, EOMI Heart: Regular rate and rhythm, no murmurs. Lungs: Clear to auscultation with no wheezing or crackles. Abdomen: Soft, nondistended, nontender, positive bowel sounds. ?No guarding or rebound tenderness. Extremities: Patient's left lower extremity, below arnold region is markedly erythematous and edematous, with +1 pitting edema in comparison the right lower extremity which is normal in appearance. Neurologic: Unable to assess orientation as the patient becomes agitated sporadically but then relaxes when not prompted Objective Labs 11/30/24 04:30 11/30/24 04:30 Labs: Laboratory Results - last 24 hr 11/28/24 11/28/24 11/29/24 13:10 20:50 04:38 WBC 12.4 H RBC 2.13 L Hgb 6.8 L* Hct 20.8 L* MCV 98 MCH 31.9 MCHC 32.7 RDW Std Deviation 44.4 Plt Count 183 Neut % (Auto) 79 Lymph % (Auto) 9 L [place] % (Auto) 7 Eos % (Auto) 4 Baso % (Auto) 0 Neut # (Auto) 9.8 H Lymph # (Auto) 1.1 [place] # (Auto) 0.9 H Eos # (Auto) 0.5 Baso # (Auto) 0.0 Immature Gran # (Auto) 0.08 H Absolute Nucleated RBC 0.00 Immature Gran % 1 H Nucleated RBC % 0 Smear Path Review Sent to Pathologist Sodium 136 138 Potassium 4.0 D 4.0 Chloride 106 108 H Carbon Dioxide 17.7 L 19.4 L Anion Gap 12 11 BUN 56 H 48 H Creatinine 2.6 H 2.4 H Estim Creat Clear Calc 11.6 L 12.6 L eGFR 17 L 19 L BUN/Creatinine Ratio 22 H 20 Glucose 186 H D 193 H Calculated Osmolality 292 293 Calcium 8.2 L 8.5 Corrected Calcium 9.0 9.2 Phosphorus 4.3 3.1 Magnesium 1.9 Total Bilirubin 0.3 AST 16 ALT 15 Alkaline Phosphatase 83 D Total Protein 6.1 Albumin 3.0 L 3.1 L Globulin 3.0 Albumin/Globulin Ratio 1.0 L Random Vancomycin 13.8 Blood Type Antibody Screen Crossmatch Blood Bank Wristband ID 11/29/24 11/29/24 06:40 07:51 WBC RBC Hgb 7.5 L Hct 23.1 L MCV MCH MCHC RDW Std Deviation Plt Count Neut % (Auto) Lymph % (Auto) [place] % (Auto) Eos % (Auto) Baso % (Auto) Neut # (Auto) Lymph # (Auto) [place] # (Auto) Eos # (Auto) Baso # (Auto) Immature Gran # (Auto) Absolute Nucleated RBC Immature Gran % Nucleated RBC % Smear Path Review Sodium Potassium Chloride Carbon Dioxide Anion Gap BUN Creatinine Estim Creat Clear Calc eGFR BUN/Creatinine Ratio Glucose Calculated Osmolality Calcium Corrected Calcium Phosphorus Magnesium Total Bilirubin AST ALT Alkaline Phosphatase Total Protein Albumin Globulin Albumin/Globulin Ratio Random Vancomycin Blood Type O Positive Antibody Screen NEGATIVE Crossmatch See Detail Blood Bank Wristband ID Yes ABG Interpretation ABG results: 11/27/24 11/28/24 14:53 09:03 VBG pH 7.23 L 7.30 L VBG pCO2 43 30 L D VBG pO2 105 H 59 H D VBG Base Excess -9 L -11 L Quality Measures Quality Measures none Advance care planning discussed with:: spouse and child Assessment & Plan Assessment Current Active Medications: Generic Name Dose Route Start Last Admin Trade Name Evita PRN Reason Stop Dose Admin Acetaminophen 650 mg 11/27/24 18:00 Acetaminophen 325 Mg Tablet PO 12/27/24 17:59 Q6H PRN PAIN 1-3 OR FEVER > 101 Clopidogrel Bisulfate 75 mg 11/29/24 09:00 11/29/24 11:57 Clopidogrel Bisulfate 75 Mg Tablet PO 12/29/24 08:59 Not Given QDAY CHONG Dextrose 25 ml 11/27/24 18:23 Dextrose 50%-Water Inj 50 Ml Syringe IV 12/27/24 18:22 Q15MIN PRN BG 50-70 responsive npo pt Dextrose 50 ml 11/27/24 18:23 Dextrose 50%-Water Inj 50 Ml Syringe IV 12/27/24 18:22 Q15MIN PRN BG <50 OR BG <70 & pt unresponsive Glucagon 1 mg 11/27/24 18:23 Glucagon Inj 1 Mg Vial IM Q15MIN PRN BG <70, and no IV access Heparin Sodium (Porcine) 5,000 unit 11/27/24 22:00 11/29/24 05:20 Heparin Sod Inj 5000 Unit/Ml Vial SC 12/11/24 21:59 5,000 unit Q8HR CHONG Administration Piperacillin/Tazobactam/Dextrose 3.375 gm in 50 mls @ 12.5 mls/hr 11/28/24 06:00 11/29/24 09:14 Zosyn IV 12/05/24 05:59 12.5 mls/hr Q12HR CHONG Administration Doxycycline Hyclate 100 mg/ 100 mls @ 100 mls/hr 11/28/24 21:00 11/29/24 09:13 Sodium Chloride IV 12/05/24 20:59 100 mls/hr BID CHONG Administration Insulin Glargine 12 unit 11/29/24 21:00 Insulin Glargine (Lantus) 5 Unit/0.05 Ml (Per 5 Units) SC 12/29/24 20:59 HS CHONG Insulin Human Lispro 0 unit 11/29/24 07:30 11/29/24 11:53 Insulin Lispro (Admelog) 1 Unit/0.01 Ml Unit SC 12/29/24 07:29 3 unit ACHS CHONG Administration Protocol Ondansetron HCl 4 mg 11/27/24 18:00 Ondansetron Inj 2 Mg/Ml Inj 2 Ml IV 12/27/24 17:59 Q6H PRN NAUSEA OR VOMITING Protocol Pantoprazole Sodium 40 mg 11/28/24 09:00 11/29/24 09:13 Pantoprazole Inj 40 Mg Vial IVP 12/28/24 08:59 40 mg QDAY CHONG Administration Polyethylene Glycol 17 gm 11/29/24 09:00 11/29/24 11:53 Polyethylene Glycol 17 Gm Packet PO 12/29/24 08:59 Not Given QDAY CHONG Sennosides 1 tab 11/29/24 04:23 Senna Tablet PO 12/29/24 04:22 QDAY PRN CONSTIPATION Protocol Plan 89-year-old Cameroonian-speaking female with past medical history of type 2 diabetes, CVA, dementia, hyperlipidemia, hypertension, previous left extremity DVT, CKD stage 4, and GERD who was brought to the ED from [facility] on 11/27/2024 due to swelling and redness of the left lower extremity for DVT evaluation. Left venous duplex was negative for active DVT however patient was found to be in septic shock secondary to UTI and admitted to the ICU. She was weaned off pressors and subsequently downgraded to the medical floors on 11/28/2024. #Sepsis secondary to GNR UTI #Shock, likely distributive - resolved #Diastolic dysfunction, stage 1 #Leukocytosis Cardiogenic and obstructive etiologies were ruled out. Patient required low dose of norepinephrine to 0.09 while in ICU. 11/28/2024: Patient was weaned off norepi around 11 am. Patient received 3.5 L of NS since arrival. Echo showed EF 60-65% and stage I diastolic dysfunction. Mild LVH. Estimated RVSP moderately elevated at around 50 mmHg. Moderate TR. Mild aortic valve sclerosis without any kind of stenosis. Mild MAC as well as mild MR. Urine culture shows Proteus mirabellis which is sensitive to Zosyn Plan: Continue IV Zosyn 3.375 q12h renally-dosed #Left lower extremity edema Left lower extremity venous doppler US on ED evaluation was negative for DVT but patient has significant leg swelling, according to patient, family, and report, developed just few days prior to admission. Patient does have documented history of left leg DVT dating back to 12/2023 [facility]. She is not currently on anticoagulation, she takes Plavix alone. Blood cultures show no growth over 24 hours Plan: Repeat duplex venous ultrasound ordered to rule out DVT, once again Treating empirically for cellulitis IV doxycycline 100 mg twice daily #Acute metabolic encephalopathy #Intermittent agitation #History of dementia CT head was negative on admission. At baseline patient has a dementia, oriented only to self most times. Currently back to baseline mentation. Patient has a history of CVA, uses wheelchair at baseline. Likely exacerbated by the patient having active infection Per nursing, patient becoming aggressive and unable to reorient Plan: Anti-delirium measures including natural light, family visitation, frequent re- orientation, early mobility Haloperidol 2.5 mg every 4 hours as needed for severe agitation Continue soft mittens Continue treating underlying infection #Acute hypoxic respiratory failure - resolved #Community-acquired versus aspiration pneumonia Patient 2 days ago had vomiting per daughter. CT chest revealed left base pneumonia on admission. 11/28/2024: Patient saturating 98 to 100% on room air. On examination, lungs clear to auscultation bilaterally. Plan: Continue IV Zosyn Sputum cultures uncollected Oxygen as needed #DEEPA on CKD, likely prerenal - improving Most likely prerenal in the setting of hypovolemia/shock. Creatinine 3.2 on presentation with GFR of 13. Baseline appeared to be creatinine 1.8-2.0 and GFR 20-22. Patient received total 3.5L fluids since hospital arrival. Plan: Monitor renal function Strict I&Os Urine output measurement, Rizzo in place #Metabolic acidosis - improving #Lactic acidosis - resolved #NAGMA plus AGMA On labs this morning, bicarb of 12.6 with anion gap of 16, corrected for albumin of 2.9-18.5. Lactic acid normal. BHB-2.3. Order urine lytes to check urine anion gap as well as optimize blood glucose control. Plan: Urine electrolytes uncollected at this time Monitor CMP #History of CVA Continue home clopidogrel 75 mg qday #History of type 2 diabetes On admission initial glucose 145. A1c 7.8 this admission. Patient takes insulin glargine 18 U qday, insulin aspart 7 U AC, insulin aspart sliding scale, Tradjenta 5 mg daily for diabetes at [facility]. Plan: Increase insulin glargine to 12 units at bedtime Insulin lispro sliding scale step 2, adjusted as necessary Carb consistent low diet #History of hypertension Home medications include carvedilol and amlodipine. Plan: Held all current medications in the setting of shock #History of GERD Continue pantoprazole 40 mg IV qday, will transition to p.o. when appropriate #Anemia of chronic disease Likely in the setting of CKD. Home medications include ferrous sulfate 325 mg BID. Stable at this time. Hold home medication in setting of acute illness Hospital Management: Lines: PIV Diet: Clear liquid diet Bowel: Senna and polyethylene glycol GI prophylaxis: Protonix DVT prophylaxis: Heparin Dispo: IV antibiotics for Proteus UTI, repeat duplex ultrasound for DVT and reorient due to patient having delirium/severe agitation Code: Full Patient seen and assessed with attending Dr. Connell and senior resident Dr. Ronaldo Dennis, PGY-1 Attending Provider Attestation/Addendum I, Kristen Connell DO, attest that I was physically present for the garibay portions of the service and evaluated the patient with the resident and I reviewed and discussed the case with the resident and agree with the resident's findings and plans of care as documented above Patient seen and evaluated this AM. Patient continues to have 2+ pitting edema in LLE and some erythema. Patient remains at baseline mental status. Will repeat US in AM. Continue with IV abx at this time. F/u with final cultures and sensitivities.
--- NOTE | 2024-11-29 14:49 | PC.SS ---
Rounding Note: Patient is a ICU downgrade. Patient receiving IV antibiotics. Plan is for the patient to obtain repeat ultra sound of left leg. Patient receiving Haldol.
--- NOTE | 2024-11-29 16:47 | PC.SS ---
GUMMING MACHINE OPERATOR conducted phone contact with the patient?s son, Ravin Leo ; to conduct initial assessment and to discuss discharge planning.? Patient is a resident of [facility].? Patient has been at [facility] since 2020.? Patient utilizes a wheelchair for mobility.? Patient does not utilize oxygen at the facility.? Patient requires assistance with the completion of ADL?s.? Patient?s medical surrogate decision maker is patient?s son, Ravin Leo. ?Facility PCP is Dr. White.? Patient does not participate with dialysis.? Plan is for the patient to return to [facility] at the time of discharge.? Patient possesses transportation coverage.? business services tech to arrange transportation on behalf of the patient.? No further intervention required at this time, social service manager will be available to address any further concerns.? Next of Kin: Ravin Leo D/C Plan: [facility]
--- NOTE | 2024-11-29 19:50 | PC.NURSE ---
REPORT RECEIVED FROM EMILY DE JESUS. PT TRANSFERRED FROM ICU [phone] TO [phone]
[2024-11-29] MEDS: INSULIN GLARGINE (Lantus) 5 UNIT/0.05 ML (PER 5 UNITS) 12 UNIT SC (21:34)
[2024-11-30] VITALS (8 sets, daily range): BP systolic 124–149; BP diastolic 56–72; PULSE 68–120; RESP 12–96; TEMP 36.2–36.7; O2SAT 93–100; BMI 22.6
[2024-11-30] MEDS: HEPARIN SOD INJ 5000 UNIT/ML VIAL SC ×3 (05:16→21:06)
[2024-11-30 06:03] LABS: Basophils % (Auto) 0 % (0-2.5); Eosinophils # (Auto) 0.5 Thou/mm3 (0.0-0.5); Eosinophils % (Auto) 6 % (0-10); Hematocrit 22.6 % (36.0-46.0); Immature Granulocytes % (Auto) 1 % (0-0); Immature Granulocytes Auto 0.08 Thou/mm3 (0.00-0.00); Immature Reticulocyte Fraction 13.1 % (3.0-15.9); Lymphocytes # (Auto) 1.4 Thou/mm3 (1.0-4.8); Lymphocytes % (Auto) 15 % (10-50); Mean Corpuscular HGB Conc 32.3 g/dl (31.0-37.0); Mean Corpuscular Hemoglobin 32.2 pg (25.0-35.0); Mean Corpuscular Volume 100 fL (80-100); Monocytes # (Auto) 0.7 Thou/mm3 (0.0-0.8); Monocytes % (Auto) 8 % (0-12); Neutrophils # (Auto) 6.4 Thou/mm3 (1.8-7.7); Neutrophils % (Auto) 70 % (37-80); Nucleated Red Blood Cell % 0 /100 WBC (0); Platelet Count 157 Thou/mm3 (140-440); RDW Standard Deviation 45.6 fL (36.4-46.3); Red Blood Count 2.27 Miln/mm3 (4.00-5.20); Reticulocyte % (Auto) 1.4 % (0.5-1.5); Reticulocyte Absolute Auto 31.8 Biln/L (25.0-75.0); Reticulocyte Hgb Content 28.6 pg (28.0-35.0); White Blood Count 9.2 Thou/mm3 (3.6-11.0)
[2024-11-30 06:07] LABS: Hemoglobin 7.3 g/dL (12.0-16.0)
[2024-11-30 06:42] LABS: Path Review Blood Smear Sent to Pathologist
[2024-11-30 06:53] LABS: Alanine Aminotransferase 18 U/L (10-49); Albumin, Serum 3.1 gm/dL (3.4-4.8); Albumin/Globulin Ratio 1.1 (1.2-2.2); Alkaline Phosphatase 127 U/L (46-116); Anion Gap 11 (7-16); Aspartate Amino Transferase 24 U/L (0-34); BUN/Creatinine Ratio 17 Ratio (12-20); Bilirubin,Total 0.3 mg/dL (0.3-1.2); Blood Urea Nitrogen 41 mg/dL (9-23); Calcium 8.5 mg/dL (8.3-10.6); Calcium (Corrected) 9.2 mg/dL (8.5-10.1); Carbon Dioxide 19.1 mMol/L (20.0-31.0); Chloride 111 mMol/L (98-107); Creatinine (Component) 2.4 mg/dL (0.6-1.3); Ferritin 522 ng/mL (7.3-270.7); Globulin 2.9 gm/dL (2.3-3.5); Glucose 142 mg/dL (74-106); Iron 37 mcg/dL (50-170); Magnesium 1.9 mg/dL (1.6-2.6); Osmolality,Calculated 293 (275-295); Percent Iron Saturation 22 % (20-55); Phosphorous 3.1 mg/dL (2.4-5.1); Potassium 4.1 mMol/L (3.4-5.1); Sodium 141 mMol/L (136-145); Total Iron Binding Capacity 166 mcg/dL (250-425); Unsaturated Iron Binding 129 (225-295); eGFR 19 See Note
--- NOTE | 2024-11-30 07:00 | XR_ITS ---
Examination: Venous duplex lower extremity sonogram, bilateral. Date and time of exam: November 30, 2024 at 0919 hours INDICATIONS: Leg edema redness and swelling this week Technique: Multiple sonographic images of the deep venous system have been obtained. B-mode/2-D grayscale imaging of vascular structures and Doppler spectral analysis (waveforms) and color performed Both legs are examined. Findings: Deep venous systems do not demonstrate abnormal echogenicity. All visualized deep veins exhibit compressibility. All visualized deep veins exhibit augmentation. Impression: Negative for deep vein thrombosis
[2024-11-30] MEDS: CLOPIDOGREL BISULFATE 75 MG TABLET PO (08:25)
[2024-11-30] MEDS: PANTOPRAZOLE INJ 40 MG VIAL IVP (08:25)
[2024-11-30] MEDS: SENNA TABLET 1 TAB PO (08:25)
[2024-11-30] MEDS: PIPER/TAZO 3.375 GM PREMIX 3.375 GM/50 ML BAG IV (08:26)
[2024-11-30] MEDS: DOXYCYCLINE INJ 100 MG in SODIUM CHLORIDE 0.9% (POP) 100 ML IV ×2 (08:26→21:05)
[2024-11-30] MEDS: POLYETHYLENE GLYCOL 17 GM PACKET PO (08:26)
[2024-11-30] MEDS: cefTRIAXone/D5w 1gm IV premix 1 GM/50 ML BAG IV (13:26)
--- NOTE | 2024-11-30 13:35 | ESPR_ITS ---
Documentation for date of: 11/30/24 Subjective Subjective Interval history: 11/30/2024: Overnight no acute events to report, patient seen and examined in hospital bed was initially awake and cooperative; however, has become more agitated and required soft mittens to be replaced. Patient's left lower extremity seems continually erythematous and edematous. Patient continues to be on IV antibiotics for the suspected cellulitis and repeat ultrasound shows no signs of deep vein thrombosis. Suspicion is that patient possibly has pelvic outlet syndrome and recommendation is to consult wound care for compression and physical therapy. Patient also given x 1 dose of EPO has anemia panel shows anemia of chronic disease likely secondary to CKD. Will continue to monitor the patient for any acute changes and expect discharge within the next 24 to 48 hours. Exam Vital Signs Temp Pulse Resp BP Pulse Ox O2 Del Method O2 Flow Rate 98.0 F 86 18 137/66 H 100 Room Air 2 11/30/24 08:00 11/30/24 11:01 11/30/24 11:01 11/30/24 08:00 11/30/24 08:00 11/30/24 08:00 11/29/24 23:50 Narrative Exam Physical Exam General: Elderly female, awake and agitated. Answers in Greek but does not respond to direct questioning. HEENT: Normocephalic, moist mucous membranes, PERRLA, EOMI Heart: Regular rate and rhythm, no murmurs. Lungs: Clear to auscultation with no wheezing or crackles. Abdomen: Soft, nondistended, nontender, positive bowel sounds. ?No guarding or rebound tenderness. Extremities: Patient's left lower extremity, below arnold region is markedly erythematous and edematous, with +1 pitting edema in comparison the right lower extremity which is normal in appearance. Neurologic: Unable to assess orientation as the patient becomes agitated sporadically but then relaxes when not prompted Objective Labs 12/01/24 04:16 12/01/24 04:16 Labs: Laboratory Results - last 24 hr 11/30/24 04:30 WBC 9.2 RBC 2.27 L Hgb 7.3 L Hct 22.6 L MCV 100 MCH 32.2 MCHC 32.3 RDW Std Deviation 45.6 Plt Count 157 Neut % (Auto) 70 Lymph % (Auto) 15 [place] % (Auto) 8 Eos % (Auto) 6 Baso % (Auto) 0 Neut # (Auto) 6.4 Lymph # (Auto) 1.4 [place] # (Auto) 0.7 Eos # (Auto) 0.5 Baso # (Auto) 0.0 Immature Gran # (Auto) 0.08 H Absolute Nucleated RBC 0.00 Immature Gran % 1 H Nucleated RBC % 0 Smear Path Review Sent to Pathologist Retic Count (auto) 1.4 Absolute Retic 31.8 Immature Retic Fraction 13.1 Retic Hgb Content CHr 28.6 Sodium 141 Potassium 4.1 Chloride 111 H Carbon Dioxide 19.1 L Anion Gap 11 BUN 41 H Creatinine 2.4 H Estim Creat Clear Calc 12.0 L eGFR 19 L BUN/Creatinine Ratio 17 Glucose 142 H D Calculated Osmolality 293 Calcium 8.5 Corrected Calcium 9.2 Phosphorus 3.1 Magnesium 1.9 Iron 37 L TIBC 166 L Iron Saturation 22 Unsat Iron Binding 129 L Ferritin 522 H Total Bilirubin 0.3 AST 24 ALT 18 Alkaline Phosphatase 127 H D Total Protein 6.0 Albumin 3.1 L Globulin 2.9 Albumin/Globulin Ratio 1.1 L ABG Interpretation ABG results: 11/27/24 11/28/24 14:53 09:03 VBG pH 7.23 L 7.30 L VBG pCO2 43 30 L D VBG pO2 105 H 59 H D VBG Base Excess -9 L -11 L Quality Measures Quality Measures none Advance care planning discussed with:: spouse and child Assessment & Plan Assessment Current Active Medications: Generic Name Dose Route Start Last Admin Trade Name Freq PRN Reason Stop Dose Admin Acetaminophen 650 mg 11/27/24 18:00 Acetaminophen 325 Mg Tablet PO 12/27/24 17:59 Q6H PRN PAIN 1-3 OR FEVER > 101 Clopidogrel Bisulfate 75 mg 11/29/24 09:00 11/30/24 08:25 Clopidogrel Bisulfate 75 Mg Tablet PO 12/29/24 08:59 75 mg QDAY CHONG Administration Dextrose 25 ml 11/27/24 18:23 Dextrose 50%-Water Inj 50 Ml Syringe IV 12/27/24 18:22 Q15MIN PRN BG 50-70 responsive npo pt Dextrose 50 ml 11/27/24 18:23 Dextrose 50%-Water Inj 50 Ml Syringe IV 12/27/24 18:22 Q15MIN PRN BG <50 OR BG <70 & pt unresponsive Glucagon 1 mg 11/27/24 18:23 Glucagon Inj 1 Mg Vial IM Q15MIN PRN BG <70, and no IV access Haloperidol Lactate 2.5 mg 11/29/24 14:32 Haloperidol Lact Inj 5 Mg/Ml Vial IV Q4HR PRN AGITATION (SEVERE) Heparin Sodium (Porcine) 5,000 unit 11/27/24 22:00 11/30/24 05:16 Heparin Sod Inj 5000 Unit/Ml Vial SC 12/11/24 21:59 5,000 unit Q8HR CHONG Administration Doxycycline Hyclate 100 mg/ 100 mls @ 100 mls/hr 11/28/24 21:00 11/30/24 08:26 Sodium Chloride IV 12/05/24 20:59 100 mls/hr BID CHONG Administration Ceftriaxone Sodium/Dextrose 1 gm in 50 mls @ 100 mls/hr 11/30/24 12:30 Rocephin/D5w 1gm Iv Premix IV 12/07/24 12:29 QDAY CHONG Insulin Glargine 12 unit 11/29/24 21:00 11/29/24 21:34 Insulin Glargine (Lantus) 5 Unit/0.05 Ml (Per 5 Units) SC 12/29/24 20:59 12 unit HS CHONG Administration Insulin Human Lispro 0 unit 11/29/24 07:30 11/30/24 12:20 Insulin Lispro (Admelog) 1 Unit/0.01 Ml Unit SC 12/29/24 07:29 Not Given ACHS [facility] Protocol Ondansetron HCl 4 mg 11/27/24 18:00 Ondansetron Inj 2 Mg/Ml Inj 2 Ml IV 12/27/24 17:59 Q6H PRN NAUSEA OR VOMITING Protocol Pantoprazole Sodium 40 mg 11/28/24 09:00 11/30/24 08:25 Pantoprazole Inj 40 Mg Vial IVP 12/28/24 08:59 40 mg QDAY CHONG Administration Polyethylene Glycol 17 gm 11/29/24 09:00 11/30/24 08:26 Polyethylene Glycol 17 Gm Packet PO 12/29/24 08:59 17 gm QDAY CHONG Administration Sennosides 1 tab 11/30/24 09:00 11/30/24 08:25 Senna Tablet PO 12/30/24 08:59 1 tab QDAY CHONG Administration Protocol Plan 89-year-old Greek-speaking female with past medical history of type 2 diabetes, CVA, dementia, hyperlipidemia, hypertension, previous left extremity DVT, CKD stage 4, and GERD who was brought to the ED from [facility] on 11/27/2024 due to swelling and redness of the left lower extremity for DVT evaluation. Left venous duplex was negative for active DVT however patient was found to be in septic shock secondary to UTI and admitted to the ICU. She was weaned off pressors and subsequently downgraded to the medical floors on 11/28/2024. #Sepsis secondary to GNR UTI #Shock, likely distributive - resolved #Diastolic dysfunction, stage 1 #Leukocytosis Cardiogenic and obstructive etiologies were ruled out. Patient required low dose of norepinephrine to 0.09 while in ICU. 11/28/2024: Patient was weaned off norepi around 11 am. Patient received 3.5 L of NS since arrival. Echo showed EF 60-65% and stage I diastolic dysfunction. Mild LVH. Estimated RVSP moderately elevated at around 50 mmHg. Moderate TR. Mild aortic valve sclerosis without any kind of stenosis. Mild MAC as well as mild MR. Urine culture shows Proteus mirabellis which is sensitive to Zosyn Plan: Switched IV Zosyn 3.375 q12h to IV Rocephin 1 g daily #Left lower extremity edema #Pelvic outlet syndrome Left lower extremity venous doppler US on ED evaluation was negative for DVT but patient has significant leg swelling, according to patient, family, and report, developed just few days prior to admission. Patient does have documented history of left leg DVT dating back to [facility]. She is not currently on anticoagulation, she takes Plavix alone. Blood cultures show no growth over 24 hours Repeat duplex venous ultrasound ordered shows no signs of DVT Plan: Treating empirically for cellulitis IV doxycycline 100 mg twice daily Wound care, compression wrap PT #Acute metabolic encephalopathy #Intermittent agitation #History of dementia CT head was negative on admission. At baseline patient has a dementia, oriented only to self most times. Currently back to baseline mentation. Patient has a history of CVA, uses wheelchair at baseline. Likely exacerbated by the patient having active infection Per nursing, patient becoming aggressive and unable to reorient Plan: Anti-delirium measures including natural light, family visitation, frequent re- orientation, early mobility Haloperidol 2.5 mg every 4 hours as needed for severe agitation Continue soft mittens Continue treating underlying infection #Acute hypoxic respiratory failure - resolved #Community-acquired versus aspiration pneumonia Patient 2 days ago had vomiting per daughter. CT chest revealed left base pneumonia on admission. 11/28/2024: Patient saturating 98 to 100% on room air. On examination, lungs clear to auscultation bilaterally. Plan: Continue IV antibiotics Sputum cultures uncollected Oxygen as needed #DEEPA on CKD, likely prerenal - improving Most likely prerenal in the setting of hypovolemia/shock. Creatinine 3.2 on presentation with GFR of 13. Baseline appeared to be creatinine 1.8-2.0 and GFR 20-22. Patient received total 3.5L fluids since hospital arrival. Plan: Monitor renal function Strict I&Os Urine output measurement, Rizzo in place #Metabolic acidosis - improving #Lactic acidosis - resolved #NAGMA plus AGMA On labs this morning, bicarb of 12.6 with anion gap of 16, corrected for albumin of 2.9-18.5. Lactic acid normal. BHB-2.3. Order urine lytes to check urine anion gap as well as optimize blood glucose control. Plan: Urine electrolytes being collected Monitor CMP #History of CVA Continue home clopidogrel 75 mg qday #History of type 2 diabetes On admission initial glucose 145. A1c 7.8 this admission. Patient takes insulin glargine 18 U qday, insulin aspart 7 U AC, insulin aspart sliding scale, Tradjenta 5 mg daily for diabetes at [facility]. Plan: Continue insulin glargine to 12 units at bedtime Insulin lispro sliding scale step 2, adjusted as necessary Carb consistent low diet #History of hypertension Home medications include carvedilol and amlodipine. Plan: Held all current medications in the setting of shock #History of GERD Continue pantoprazole 40 mg IV qday, will transition to p.o. when appropriate #Anemia of chronic disease Likely in the setting of CKD. Home medications include ferrous sulfate 325 mg BID. Stable at this time. Hold home medication in setting of acute illness Hospital Management: Lines: PIV Diet: Clear liquid diet Bowel: Senna and polyethylene glycol GI prophylaxis: Protonix DVT prophylaxis: Heparin Dispo: IV antibiotics for Proteus UTI, repeat duplex ultrasound for DVT and reorient due to patient having delirium/severe agitation Code: Full Patient seen and assessed with attending Dr. Connell and senior resident Dr. Ritesh Dennis, PGY-1 -- ATTESTATION: I saw and examined the patient this morning, and I agree with current management stated by the resident. Will continue to monitor patient during their stay. Patient is our 89-year-old female with past medical history of diabetes, CVA, dementia, hyperlipidemia, hypertension and previous DVT that was admitted to the ICU due to severe sepsis secondary to GNR UTI. Patient is trending in the right direction and will continue antibiotic treatment at this time. Patient's left lower extremity continues to be very edematous and repeat ultrasound of the leg did not show any DVT. Patient likely has pelvic outlet syndrome. Will continue to monitor patient and plan for discharge within the next 48 hours. Disclaimer: Despite multiple revisions, due to the dictation software being used, the document bellow may not be free of grammatical errors including phonetic/typographic errors. However, this does not deter from our commitment to providing health care in the patient's best interest in mind. Dr. Fernando Awad, PGY-3 Attending Provider Attestation/Addendum I, Kristen Connell DO, attest that I was physically present for the garibay portions of the service and evaluated the patient with the resident and I reviewed and discussed the case with the resident and agree with the resident's findings and plans of care as documented above Patient seen and evaluated this AM. Patient is more agitated this morning and removing her mittens. Patient states she is feeling well and has no issues. She would like to be left alone. Left leg remains edematous, but is not erythematous. She continues to have 2+ pitting edema. Will continue with IV abx and place compression wrapping over LLE. Venous doppler of LLE was repeated and there is no evidence of DVT.
[2024-11-30] MEDS: EPOETIN ALFA-EPBX INJ 10,000 UNIT/ML VIAL (ESRD) 10000 UNIT SC (13:54)
--- NOTE | 2024-11-30 15:19 | PC.SS ---
Rounding note: patient is receiving IV abx, getting wound care.
[2024-11-30] MEDS: INSULIN LISPRO (AdmeLOG) 1 UNIT/0.01 ML UNIT SC (18:05)
[2024-11-30] MEDS: DEXTROSE 50%-WATER INJ 50 ML SYRINGE 25 ML IV (21:50)
[2024-11-30 22:45] LABS: Chloride,Urine 78.4 mMol/L (55.0-125.0); Chloride,Urine Random 78.4 mMol/L (55.0-125.0); Potassium,Urine 18 mMol/L (12-62); Potassium,Urine Random 18 mMol/L (12-62); Sodium,Urine 87 mMol/L (20-110)
[2024-11-30 23:11] LABS: Chloride, 24 hr Urine 59 mEq/24hr (110-250); Chloride, Urine Volume 750 mL/24hr (600-1800); Potassium, 24hr Urine 14 mEq/24hr (25-125); Potassium, Urine Volume 750 mL/24hr (600-1800); Sodium, Urine Volume 750 mL/24hr (600-1800); Sodium,24hr Urine 65 mEq/24hr (40-220)
[2024-11-30] MEDS: HALOPERIDOL LACT INJ 5 MG/ML VIAL 2.5 MG IV (23:26)
[2024-12-01] VITALS (9 sets, daily range): BP systolic 121–164; BP diastolic 62–84; PULSE 56–99; RESP 13–98; TEMP 36.2–36.6; O2SAT 98–100; BMI 20.9
[2024-12-01 03:38] LABS: OBS Card Lot # 23001; OBS Developer Lot # 23002; OBS QC OK? Yes; Occult Blood, Stool Negative (Negative)
[2024-12-01] MEDS: HEPARIN SOD INJ 5000 UNIT/ML VIAL SC ×3 (05:12→21:08)
[2024-12-01 05:37] LABS: Basophils % (Auto) 0 % (0-2.5); Eosinophils # (Auto) 0.4 Thou/mm3 (0.0-0.5); Eosinophils % (Auto) 6 % (0-10); Hematocrit 23.8 % (36.0-46.0); Immature Granulocytes % (Auto) 1 % (0-0); Immature Granulocytes Auto 0.11 Thou/mm3 (0.00-0.00); Lymphocytes # (Auto) 1.3 Thou/mm3 (1.0-4.8); Lymphocytes % (Auto) 17 % (10-50); Mean Corpuscular HGB Conc 31.9 g/dl (31.0-37.0); Mean Corpuscular Hemoglobin 31.7 pg (25.0-35.0); Mean Corpuscular Volume 99 fL (80-100); Monocytes # (Auto) 0.6 Thou/mm3 (0.0-0.8); Monocytes % (Auto) 8 % (0-12); Neutrophils # (Auto) 5.2 Thou/mm3 (1.8-7.7); Neutrophils % (Auto) 68 % (37-80); Nucleated Red Blood Cell % 0 /100 WBC (0); Platelet Count 177 Thou/mm3 (140-440); RDW Standard Deviation 45.5 fL (36.4-46.3); White Blood Count 7.7 Thou/mm3 (3.6-11.0)
[2024-12-01 05:43] LABS: Hemoglobin 7.6 g/dL (12.0-16.0)
[2024-12-01 06:01] LABS: Alanine Aminotransferase 24 U/L (10-49); Albumin, Serum 3.3 gm/dL (3.4-4.8); Alkaline Phosphatase 109 U/L (46-116); Anion Gap 11 (7-16); Aspartate Amino Transferase 36 U/L (0-34); BUN/Creatinine Ratio 15 Ratio (12-20); Bilirubin,Total 0.3 mg/dL (0.3-1.2); Blood Urea Nitrogen 31 mg/dL (9-23); Calcium (Corrected) 9.6 mg/dL (8.5-10.1); Carbon Dioxide 19.3 mMol/L (20.0-31.0); Chloride 113 mMol/L (98-107); Creatinine (Component) 2.1 mg/dL (0.6-1.3); Estimated Creatinine Clearance 13.7 mL/min (>60); Globulin 3.2 gm/dL (2.3-3.5); Glucose 91 mg/dL (74-106); Osmolality,Calculated 291 (275-295); Potassium 4.2 mMol/L (3.4-5.1); Sodium 143 mMol/L (136-145); Total Protein 6.5 gm/dL (5.7-8.2); eGFR 22 See Note
[2024-12-01] MEDS: POLYETHYLENE GLYCOL 17 GM PACKET PO (08:23)
[2024-12-01] MEDS: DOXYCYCLINE INJ 100 MG in SODIUM CHLORIDE 0.9% (POP) 100 ML IV ×2 (08:24→20:09)
[2024-12-01] MEDS: cefTRIAXone/D5w 1gm IV premix 1 GM/50 ML BAG IV (08:24)
[2024-12-01] MEDS: CLOPIDOGREL BISULFATE 75 MG TABLET PO (08:24)
[2024-12-01] MEDS: PANTOPRAZOLE INJ 40 MG VIAL IVP (08:24)
[2024-12-01] MEDS: SENNA TABLET 1 TAB PO (08:24)
--- NOTE | 2024-12-01 10:57 | PC.NURSE ---
Notified Dr. Higgins of [facility] 11/30. Ok to hold enema administration.
[2024-12-01] MEDS: INSULIN LISPRO (AdmeLOG) 1 UNIT/0.01 ML UNIT SC (12:18)
--- NOTE | 2024-12-01 14:58 | PD.RESPRO ---
Documentation for date of: 12/01/24 Subjective Subjective Interval history: Overnight patient was agitated and required soft wrist restraints.?She also received haldol 2.5. Patient seen and examined at bedside this AM.?She was seen eating breakfast in presence of sitter, calm at this time. Per nursing facility patient is combative at baseline and they are used to her requiring restraints so there is no need to keep her off restraints 24 hours, however will require being off haldol. Added seroquel 12.5 dose at night. Labs and vitals were reviewed.?Decreased insulin glargine from 12 to 10 due to low BG. Continue with IV antibiotics for Proteus UTI. No further complaints at this time. Requested left leg be wrapped with compression wraps/socks due to edema, likely poor venous return. Review of systems otherwise negative except what is mentioned above. Exam Vital Signs Temp Pulse Resp BP Pulse Ox O2 Del Method O2 Flow Rate 97.6 F 74 19 143/66 H 99 Room Air 2 12/01/24 11:55 12/01/24 11:55 12/01/24 11:55 12/01/24 11:55 12/01/24 11:55 12/01/24 11:55 11/29/24 23:50 Narrative Exam Physical Exam General: Elderly female, awake and agitated. Answers in Romansh but does not respond to direct questioning. HEENT: Normocephalic, moist mucous membranes, PERRLA, EOMI Heart: Regular rate and rhythm, no murmurs. Lungs: Clear to auscultation with no wheezing or crackles. Abdomen: Soft, nondistended, nontender, positive bowel sounds. ?No guarding or rebound tenderness. Extremities: Patient's left lower extremity, below arnold region is markedly erythematous and edematous, with +1 pitting edema in comparison the right lower extremity which is normal in appearance. Neurologic: Unable to assess orientation as the patient becomes agitated sporadically but then relaxes when not prompted Objective Labs 12/02/24 04:48 12/02/24 04:48 Labs: Laboratory Results - last 24 hr 11/30/24 11/30/24 11/30/24 16:48 22:22 22:22 WBC RBC Hgb Hct MCV MCH MCHC RDW Std Deviation Plt Count Neut % (Auto) Lymph % (Auto) [place] % (Auto) Eos % (Auto) Baso % (Auto) Neut # (Auto) Lymph # (Auto) [place] # (Auto) Eos # (Auto) Baso # (Auto) Immature Gran # (Auto) Absolute Nucleated RBC Immature Gran % Nucleated RBC % Sodium Potassium Chloride Carbon Dioxide Anion Gap BUN Creatinine Estim Creat Clear Calc eGFR BUN/Creatinine Ratio Glucose Calculated Osmolality Calcium Corrected Calcium Total Bilirubin AST ALT Alkaline Phosphatase Total Protein Albumin Globulin Albumin/Globulin Ratio Ur Random Sodium 87.0 Ur Random Potassium 18 Ur Random Chloride 78.4 Urine Total Volume 750 750 Ur Sodium mmol/L 87 Ur Sodium 24 Hour 65 Ur Potassium mmol/L 18 Ur Potassium 24 Hour 14 L Ur Chloride mmol/L Ur Chloride 24 Hour Stool Occult Blood Negative 11/30/24 12/01/24 22:22 04:16 WBC 7.7 RBC 2.40 L Hgb 7.6 L Hct 23.8 L MCV 99 MCH 31.7 MCHC 31.9 RDW Std Deviation 45.5 Plt Count 177 Neut % (Auto) 68 Lymph % (Auto) 17 [place] % (Auto) 8 Eos % (Auto) 6 Baso % (Auto) 0 Neut # (Auto) 5.2 Lymph # (Auto) 1.3 [place] # (Auto) 0.6 Eos # (Auto) 0.4 Baso # (Auto) 0.0 Immature Gran # (Auto) 0.11 H Absolute Nucleated RBC 0.00 Immature Gran % 1 H Nucleated RBC % 0 Sodium 143 Potassium 4.2 Chloride 113 H Carbon Dioxide 19.3 L Anion Gap 11 BUN 31 H Creatinine 2.1 H Estim Creat Clear Calc 13.7 L eGFR 22 L BUN/Creatinine Ratio 15 Glucose 91 D Calculated Osmolality 291 Calcium 9.0 Corrected Calcium 9.6 Total Bilirubin 0.3 AST 36 H ALT 24 Alkaline Phosphatase 109 Total Protein 6.5 Albumin 3.3 L Globulin 3.2 Albumin/Globulin Ratio 1.0 L Ur Random Sodium Ur Random Potassium Ur Random Chloride Urine Total Volume 750 Ur Sodium mmol/L Ur Sodium 24 Hour Ur Potassium mmol/L Ur Potassium 24 Hour Ur Chloride mmol/L 78.4 Ur Chloride 24 Hour 59 L Stool Occult Blood ABG Interpretation ABG results: 11/27/24 11/28/24 14:53 09:03 VBG pH 7.23 L 7.30 L VBG pCO2 43 30 L D VBG pO2 105 H 59 H D VBG Base Excess -9 L -11 L Quality Measures Quality Measures none Advance care planning discussed with:: patient Assessment & Plan Assessment Current Active Medications: Generic Name Dose Route Start Last Admin Trade Name Freq PRN Reason Stop Dose Admin Acetaminophen 650 mg 11/27/24 18:00 Acetaminophen 325 Mg Tablet PO 12/27/24 17:59 Q6H PRN PAIN 1-3 OR FEVER > 101 Clopidogrel Bisulfate 75 mg 11/29/24 09:00 12/01/24 08:24 Clopidogrel Bisulfate 75 Mg Tablet PO 12/29/24 08:59 75 mg QDAY CHONG Administration Dextrose 25 ml 11/27/24 18:23 11/30/24 21:50 Dextrose 50%-Water Inj 50 Ml Syringe IV 12/27/24 18:22 25 ml Q15MIN PRN Administration BG 50-70 responsive npo pt Dextrose 50 ml 11/27/24 18:23 Dextrose 50%-Water Inj 50 Ml Syringe IV 12/27/24 18:22 Q15MIN PRN BG <50 OR BG <70 & pt unresponsive Glucagon 1 mg 11/27/24 18:23 Glucagon Inj 1 Mg Vial IM Q15MIN PRN BG <70, and no IV access Haloperidol Lactate 2.5 mg 11/29/24 14:32 11/30/24 23:26 Haloperidol Lact Inj 5 Mg/Ml Vial IV 2.5 mg Q4HR PRN Administration AGITATION (SEVERE) Heparin Sodium (Porcine) 5,000 unit 11/27/24 22:00 12/01/24 14:00 Heparin Sod Inj 5000 Unit/Ml Vial SC 12/11/24 21:59 5,000 unit Q8HR CHONG Administration Doxycycline Hyclate 100 mg/ 100 mls @ 100 mls/hr 11/28/24 21:00 12/01/24 08:24 Sodium Chloride IV 12/05/24 20:59 100 mls/hr BID CHONG Administration Ceftriaxone Sodium/Dextrose 1 gm in 50 mls @ 100 mls/hr 11/30/24 12:30 12/01/24 08:24 Rocephin/D5w 1gm Iv Premix IV 12/07/24 12:29 100 mls/hr QDAY CHONG Administration Insulin Glargine 10 unit 12/01/24 21:00 Insulin Glargine (Lantus) 5 Unit/0.05 Ml (Per 5 Units) SC 12/31/24 20:59 HS CHONG Insulin Human Lispro 0 unit 11/29/24 07:30 12/01/24 12:18 Insulin Lispro (Admelog) 1 Unit/0.01 Ml Unit SC 12/29/24 07:29 2 unit ACHS CHONG Administration Protocol Ondansetron HCl 4 mg 11/27/24 18:00 Ondansetron Inj 2 Mg/Ml Inj 2 Ml IV 12/27/24 17:59 Q6H PRN NAUSEA OR VOMITING Protocol Pantoprazole Sodium 40 mg 11/28/24 09:00 12/01/24 08:24 Pantoprazole Inj 40 Mg Vial IVP 12/28/24 08:59 40 mg QDAY CHONG Administration Polyethylene Glycol 17 gm 11/29/24 09:00 12/01/24 08:23 Polyethylene Glycol 17 Gm Packet PO 12/29/24 08:59 17 gm QDAY CHONG Administration Quetiapine Fumarate 12.5 mg 12/01/24 21:00 Quetiapine Fumarate 25 Mg Tablet PO 12/31/24 20:59 [facility] Sennosides 1 tab 11/30/24 09:00 12/01/24 08:24 Senna Tablet PO 12/30/24 08:59 1 tab QDAY CHONG Administration Protocol Plan 89-year-old Romansh-speaking female with past medical history of type 2 diabetes, CVA, dementia, hyperlipidemia, hypertension, previous left extremity DVT, CKD stage 4, and GERD who was brought to the ED from [facility] on 11/27/2024 due to swelling and redness of the left lower extremity for DVT evaluation. Left venous duplex was negative for active DVT however patient was found to be in septic shock secondary to UTI and admitted to the ICU. She was weaned off pressors and subsequently downgraded to the medical floors on 11/28/2024. #Sepsis secondary to GNR UTI #Shock, likely distributive - resolved #Diastolic dysfunction, stage 1 #Leukocytosis Cardiogenic and obstructive etiologies were ruled out. Patient required low dose of norepinephrine to 0.09 while in ICU. 11/28/2024: Patient was weaned off norepi around 11 am. Patient received 3.5 L of NS since arrival. Echo showed EF 60-65% and stage I diastolic dysfunction. Mild LVH. Estimated RVSP moderately elevated at around 50 mmHg. Moderate TR. Mild aortic valve sclerosis without any kind of stenosis. Mild MAC as well as mild MR. Urine culture shows Proteus mirabellis which is sensitive to Zosyn Plan: Continue IV Rocephin 1 g daily #Left lower extremity edema #Pelvic outlet syndrome Left lower extremity venous doppler US on ED evaluation was negative for DVT but patient has significant leg swelling, according to patient, family, and report, developed just few days prior to admission. Patient does have documented history of left leg DVT dating back to 12/2023 in the SNF records. She is not currently on anticoagulation, she takes Plavix alone. Blood cultures show no growth over 24 hours Repeat duplex venous ultrasound ordered shows no signs of DVT Plan: Treating empirically for cellulitis IV doxycycline 100 mg twice daily Wound care, compression wrap PT #Acute metabolic encephalopathy #Intermittent agitation #History of dementia CT head was negative on admission. At baseline patient has a dementia, oriented only to self most times. Currently back to baseline mentation. Patient has a history of CVA, uses wheelchair at baseline. Likely exacerbated by the patient having active infection Per nursing, patient becoming aggressive and unable to reorient Plan: Anti-delirium measures including natural light, family visitation, frequent re-orientation, early mobility Discotninued Haloperidol 2.5 mg every 4 hours as needed for severe agitation Started seroquel 12.5 mg HS Continue soft mittens Continue treating underlying infection #Acute hypoxic respiratory failure - resolved #Community-acquired versus aspiration pneumonia Patient 2 days ago had vomiting per daughter. CT chest revealed left base pneumonia on admission. 11/28/2024: Patient saturating 98 to 100% on room air. On examination, lungs clear to auscultation bilaterally. Plan: Continue IV antibiotics Sputum cultures uncollected Oxygen as needed #DEEPA on CKD, likely prerenal - improving Most likely prerenal in the setting of hypovolemia/shock. Creatinine 3.2 on presentation with GFR of 13. Baseline appeared to be creatinine 1.8-2.0 and GFR 20-22. Patient received total 3.5L fluids since hospital arrival. Plan: Monitor renal function Strict I&Os Urine output measurement, Rizzo in place #Metabolic acidosis - improving #Lactic acidosis - resolved #NAGMA plus AGMA On labs this morning, bicarb of 12.6 with anion gap of 16, corrected for albumin of 2.9-18.5. Lactic acid normal. BHB-2.3. Order urine lytes to check urine anion gap as well as optimize blood glucose control. Plan: Urine electrolytes being collected Monitor CMP #History of CVA Continue home clopidogrel 75 mg qday #History of type 2 diabetes On admission initial glucose 145. A1c 7.8 this admission. Patient takes insulin glargine 18 U qday, insulin aspart 7 U AC, insulin aspart sliding scale, Tradjenta 5 mg daily for diabetes at [facility]. Plan: Changed insulin glargine 12 units to 10 units at bedtime Insulin lispro sliding scale step 2, adjusted as necessary Carb consistent low diet #History of hypertension Home medications include carvedilol and amlodipine. Plan: Held all current medications in the setting of shock #History of GERD Continue pantoprazole 40 mg IV qday, will transition to p.o. when appropriate #Anemia of chronic disease Likely in the setting of CKD. Home medications include ferrous sulfate 325 mg BID. Stable at this time. Hold home medication in setting of acute illness Hospital Management: Lines: PIV Diet: Clear liquid diet Bowel: Senna and polyethylene glycol GI prophylaxis: Protonix DVT prophylaxis: Heparin Dispo: IV antibiotics for Proteus UTI, repeat duplex ultrasound for DVT and reorient due to patient having delirium/severe agitation Code: Full Patient plan of care was discussed with the attending physician, Dr. Connell. Lacie Higgins, PGY-2 Attending Provider Attestation/Addendum Kristen Wilkes, , attest that I was physically present for the garibay portions of the service and evaluated the patient with the resident and I reviewed and discussed the case with the resident and agree with the resident's findings and plans of care as documented above Patient seen and evaluated this AM. Patient states she is feeling well and has no issues. Her left leg remains edematous, but appears improved with elevation. Suspect pelvic outlet syndrome. Will have nursing wrap the leg with ezekiel wrap for compression. Patient otherwise has been waxing and waning with her mood. Per SNF, this is patient's baseline and are willing to take the patient back tomorrow. Plan for discharge back to SNF.
--- NOTE | 2024-12-01 15:12 | PC.SS ---
[employer]PER[employer] met with pt at bedside to follow up from what SNF she came from and she stated she came from [facility], civilian jail officer to follow up with huey to update on ETA of Fabiana.Ari.
[2024-12-01] MEDS: QUEtiapine FUMARATE 25 MG TABLET 12.5 MG PO (20:09)
[2024-12-02] VITALS (9 sets, daily range): BP systolic 131–167; BP diastolic 66–88; PULSE 59–80; RESP 13–98; TEMP 36.2–37.1; O2SAT 99–100; BMI 20.9
[2024-12-02] MEDS: HEPARIN SOD INJ 5000 UNIT/ML VIAL SC ×3 (05:09→21:03)
[2024-12-02 06:20] LABS: Basophils % (Auto) 0 % (0-2.5); Eosinophils # (Auto) 0.4 Thou/mm3 (0.0-0.5); Eosinophils % (Auto) 6 % (0-10); Hematocrit 21.7 % (36.0-46.0); Hemoglobin 7.2 g/dL (12.0-16.0); Immature Granulocytes % (Auto) 3 % (0-0); Immature Granulocytes Auto 0.17 Thou/mm3 (0.00-0.00); Lymphocytes # (Auto) 1.2 Thou/mm3 (1.0-4.8); Lymphocytes % (Auto) 18 % (10-50); Mean Corpuscular HGB Conc 33.2 g/dl (31.0-37.0); Mean Corpuscular Hemoglobin 32.1 pg (25.0-35.0); Mean Corpuscular Volume 97 fL (80-100); Monocytes # (Auto) 0.6 Thou/mm3 (0.0-0.8); Monocytes % (Auto) 9 % (0-12); Neutrophils # (Auto) 4.3 Thou/mm3 (1.8-7.7); Neutrophils % (Auto) 64 % (37-80); Nucleated Red Blood Cell # 0.02 Thou/mm3 (0.00-0.00); Nucleated Red Blood Cell % 0 /100 WBC (0); Platelet Count 257 Thou/mm3 (140-440); RDW Standard Deviation 43.9 fL (36.4-46.3); Red Blood Count 2.24 Miln/mm3 (4.00-5.20); White Blood Count 6.7 Thou/mm3 (3.6-11.0)
[2024-12-02 06:55] LABS: Alanine Aminotransferase 16 U/L (10-49); Alkaline Phosphatase 91 U/L (46-116); Anion Gap 8 (7-16); Aspartate Amino Transferase 19 U/L (0-34); BUN/Creatinine Ratio 15 Ratio (12-20); Bilirubin,Total 0.2 mg/dL (0.3-1.2); Blood Urea Nitrogen 27 mg/dL (9-23); Calcium 8.4 mg/dL (8.3-10.6); Calcium (Corrected) 9.2 mg/dL (8.5-10.1); Carbon Dioxide 20.8 mMol/L (20.0-31.0); Chloride 112 mMol/L (98-107); Creatinine (Component) 1.8 mg/dL (0.6-1.3); Globulin 2.9 gm/dL (2.3-3.5); Glucose 127 mg/dL (74-106); Osmolality,Calculated 288 (275-295); Potassium 4.1 mMol/L (3.4-5.1); Sodium 141 mMol/L (136-145); Total Protein 5.9 gm/dL (5.7-8.2); eGFR 27 See Note
[2024-12-02] MEDS: DOXYCYCLINE INJ 100 MG in SODIUM CHLORIDE 0.9% (POP) 100 ML IV ×2 (09:10→20:54)
[2024-12-02] MEDS: PANTOPRAZOLE INJ 40 MG VIAL IVP (09:11)
[2024-12-02] MEDS: cefTRIAXone/D5w 1gm IV premix 1 GM/50 ML BAG IV (09:11)
--- NOTE | 2024-12-02 09:31 | PC.SS ---
Late entry for 12/01/24: SS spoke to Flakita [facility] to confirm if patient can return to [facility]. SS explained to [facility] patient is currently Haldol and on mitten restraints. SS further explained patient was being verbally aggresive towards staff and attempting to hit staff. Flakita stated patient has dementia and her baseline is being verbally aggressive towards others. Flaktia also stated patient would physically lash out at [facility] staff and can accept patient even if she has not been off restraints for 24hrs. Flakita also requested patient be off of Haldol for 24hrs. before she can return to [facility]. SS informed Dr. Connell and Dr. Higgins.
--- NOTE | 2024-12-02 10:31 | PC.SS ---
Addendum entered by Mariam Centeno 12/02/24 13:50: SS informed by Flakita [facility] they will not accept patient back until tomorrow. Flakita stated patient needs to be off of Seroquel for 24hrs, last dose administered 12/01/24 at 2008. Addendum entered by Mariam Centeno 12/02/24 10:48: SS submitted 72hr. MAR and current progress note for review to [facility] via [facility], pending review. Original Note: SS contacted [facility] to confirm if patient can return to [facility]. Flakita requested a 72 MAR and current progress note for review before accepting patient today. Flakita is requesting patient be off of Seroquel and Haldol for 24hrs. before patient can return to [facility].
[2024-12-02] MEDS: CLOPIDOGREL BISULFATE 75 MG TABLET PO (11:25)
[2024-12-02] MEDS: SENNA TABLET 1 TAB PO (11:26)
[2024-12-02] MEDS: POLYETHYLENE GLYCOL 17 GM PACKET PO (11:26)
--- NOTE | 2024-12-02 11:47 | PD.RESDS ---
Planned Discharge Date 12/02/24 DS: Providers Provider Date of admission: 11/27/24 17:39 Primary care physician: Williams White MD Admitting Provider: Kathy Reina MD Attending Provider on Admission: Kristen Connell DO Consults: 11/28/24 07:37 Referral Wound Care Stat Comment: Compression wrapping for pelvic outlet syndrome Attending Provider on DC: Haile Dennis MD Discharging Provider: Haile Dennis MD Hospital Course Hospital Course Hospital course: Overnight patient was agitated and required soft wrist restraints.?She also received haldol 2.5. Patient seen and examined at bedside this AM.?She was seen eating breakfast in presence of sitter, calm at this time. Per nursing facility patient is combative at baseline and they are used to her requiring restraints so there is no need to keep her off restraints 24 hours, however will require being off haldol. Added seroquel 12.5 dose at night. Labs and vitals were reviewed.?Decreased insulin glargine from 12 to 10 due to low BG. Continue with IV antibiotics for Proteus UTI. No further complaints at this time. Requested left leg be wrapped with compression wraps/socks due to edema, likely poor venous return. Review of systems otherwise negative except what is mentioned above. Time Spent with Patient Time attestation: Total time spent providing and/or coordinating discharge services: Exam Vital Signs Temp Pulse Resp BP Pulse Ox O2 Del Method O2 Flow Rate 97.6 F 59 L 16 157/70 H 100 Room Air 2 12/02/24 08:00 12/02/24 08:00 12/02/24 08:00 12/02/24 08:00 12/02/24 08:00 12/02/24 08:00 12/02/24 02:56 Discharge Plan Plan Patient Disposition: Xfer Skilled Nsg Fac (SNF) Patient condition on transfer: Stable Care Plan Goals: Please take amoxicillin-clavulanate 500-125mg by mouth twice a day for two more days for UTI Please take doxycycline 100mg by mouth twice a day for two more days for cellulitis of left foot Continue taking all other home medications as prescribed Follow-up with your PCP within 1-2 weeks If your symptoms worsen or if you develop new chest pain, shortness of breath, fever/chills, severe abdominal pain - please come back to the ED immediately. Prescriptions/Referrals Prescriptions/Med Rec: New amoxicillin-pot clavulanate 500-125 mg tablet 1 tab PO BID 2 Days Qty: 4 0RF doxycycline monohydrate 100 mg capsule 100 mg PO BID 2 Days Qty: 4 0RF Continued famotidine [Pepcid] 20 MG tablet 20 mg PO QDAY Qty: 0 Patient Comments: TO SUPPRESS GASTRIC ACID SECRETION ferrous sulfate 325 mg (65 mg iron) Tablet 325 mg PO BID folic acid 1 mg tablet 1 mg PO QDAY calcitriol 0.25 mcg Capsule 0.25 mcg PO HS memantine 10 mg Tablet 10 mg PO BID insulin glargine [Basaglar KwikPen U-100 Insulin] 100 unit/mL (3 mL) insulin pen 18 unit SUBCUT QAM Rx Instructions: NOTIFY MD IF BS >400,<70 diphenhydramine HCl [Benadryl Allergy] 25 mg tablet 25 mg PO Q12HR PRN (Reason: skin rash) carvedilol 3.125 mg Tablet 3.125 mg PO BID Rx Instructions: must administer with a meal/food HOLD FOR SBP<100,DBP<60 amlodipine 2.5 mg Tablet 2.5 mg PO QAM Rx Instructions: HOLD FOR SBP<100 OR DBP<60 clopidogrel 75 mg Tablet 75 mg PO QDAY atorvastatin 80 mg Tablet 80 mg PO HS pantoprazole 40 mg tablet,delayed release (DR/EC) 40 mg PO QDAY Qty: 30 1RF insulin glargine [Basaglar KwikPen U-100 Insulin] 100 unit/mL (3 mL) Insulin Pen 18 unit SUBCUT HS Rx Instructions: DM FINGERSTICK PRIOR TO ADMINISTRATION-NOTIFY MD IF BS>400,<70 Tradjenta 5 mg Tablet 5 mg PO QDAY Rx Instructions: FOR DM,HOLD IF BS <100 OR NOTIFY MD IF BS>400 acetaminophen [Tylenol] 325 mg Tablet 650 mg PO Q6HR PRN (Reason: MILD PAIN (1-3)) insulin aspart U-100 [Novolog U-100 Insulin aspart] 100 unit/mL Solution 1 sliding scale dose SUBCUT USEASDIRECTD Rx Instructions: INJECT PER SLIDING SCALE: IF 70-150=0;151-200=2;201-250=4;251-300=6;301-350=8;351-400=10;>400 NOTIFY MD,SUBCUT 3X A DAY FOR DM HOLD BS IF<100 OR NOTIFY MD IF BS >400,<70 FINGERSTICK PRIOR TO ADMINISTRATION. cyanocobalamin (vitamin B-12) 1,000 mcg Tablet 2,000 mcg PO DAILY cephalexin 500 mg capsule 500 mg PO BID Qty: 10 0RF Referrals: Williams White MD [Primary Care Provider] - Patient/Caregiver Discharge Instructions Education Materials: Dementia Patients Caregiver, Discharge Instructions for Cellulitis, Delirium & Dementia Difference Print Language: Hungarian Stand Alone Forms: Nelsy Award Info., Patient Portal Info Letter Discharge Order Discharge Orders: Discharge (Routine); Ordered 12/02/24 Ordered By: Haile Dennis
--- NOTE | 2024-12-02 12:56 | PD.RESPRO ---
Documentation for date of: 12/02/24 Subjective Subjective Interval history: 12/02/2024: No acute overnight events to report. Patient seen and examined in hospital bed was initially somewhat somnolent likely secondary to the Seroquel that she received overnight. Patient was eventually able to wake up and follow commands. Denies having any concerning symptoms such as chest pain, shortness of breath, abdominal pain or dizziness. Patient continues to receive IV antibiotics for Proteus UTI along with cellulitis of the left lower extremity. Family bedside updated regarding her condition and overall improvement. Family has been made aware that she will require compression stockings on the left lower extremity for likely pelvic outlet syndrome along with oral Lasix for the pulmonary arterial hypertension. As the patient received Seroquel overnight she will not be able to discharge to SNF and requires 24 hours off Seroquel. Will continue to monitor for any acute changes. Exam Vital Signs Temp Pulse Resp BP Pulse Ox O2 Del Method O2 Flow Rate 97.6 F 59 L 16 157/70 H 100 Room Air 2 12/02/24 08:00 12/02/24 08:00 12/02/24 08:00 12/02/24 08:00 12/02/24 08:00 12/02/24 08:00 12/02/24 02:56 Narrative Exam Physical Exam General: Elderly female, awake. Answers in [place] HEENT: Normocephalic, moist mucous membranes, PERRLA, EOMI Heart: Regular rate and rhythm, no murmurs. Lungs: Clear to auscultation with no wheezing or crackles. Abdomen: Soft, nondistended, nontender, positive bowel sounds. ?No guarding or rebound tenderness. Extremities: Patient's left lower extremity, below arnold region is markedly erythematous and edematous, with +1 pitting edema in comparison the right lower extremity which is normal in appearance. Neurologic: Unable to assess orientation as the patient becomes agitated sporadically but then relaxes when not prompted Objective Labs 12/03/24 05:31 12/03/24 05:31 Labs: Laboratory Results - last 24 hr 11/29/24 12/02/24 06:40 04:48 WBC 6.7 RBC 2.24 L Hgb 7.2 L Hct 21.7 L* MCV 97 MCH 32.1 MCHC 33.2 RDW Std Deviation 43.9 Plt Count 257 D Neut % (Auto) 64 Lymph % (Auto) 18 [place] % (Auto) 9 Eos % (Auto) 6 Baso % (Auto) 0 Neut # (Auto) 4.3 Lymph # (Auto) 1.2 [place] # (Auto) 0.6 Eos # (Auto) 0.4 Baso # (Auto) 0.0 Immature Gran # (Auto) 0.17 H Absolute Nucleated RBC 0.02 H Immature Gran % 3 H Nucleated RBC % 0 Sodium 141 Potassium 4.1 Chloride 112 H Carbon Dioxide 20.8 Anion Gap 8 BUN 27 H Creatinine 1.8 H Estim Creat Clear Calc 16.0 L eGFR 27 L BUN/Creatinine Ratio 15 Glucose 127 H Calculated Osmolality 288 Calcium 8.4 Corrected Calcium 9.2 Total Bilirubin 0.2 L AST 19 ALT 16 Alkaline Phosphatase 91 Total Protein 5.9 Albumin 3.0 L Globulin 2.9 Albumin/Globulin Ratio 1.0 L Crossmatch See Detail ABG Interpretation ABG results: 11/27/24 11/28/24 14:53 09:03 VBG pH 7.23 L 7.30 L VBG pCO2 43 30 L D VBG pO2 105 H 59 H D VBG Base Excess -9 L -11 L Quality Measures Quality Measures none Advance care planning discussed with:: patient and child Assessment & Plan Assessment Current Active Medications: Generic Name Dose Route Start Last Admin Trade Name Freq PRN Reason Stop Dose Admin Acetaminophen 650 mg 11/27/24 18:00 Acetaminophen 325 Mg Tablet PO 12/27/24 17:59 Q6H PRN PAIN 1-3 OR FEVER > 101 Clopidogrel Bisulfate 75 mg 11/29/24 09:00 12/02/24 11:25 Clopidogrel Bisulfate 75 Mg Tablet PO 12/29/24 08:59 75 mg QDAY CHONG Administration Dextrose 25 ml 11/27/24 18:23 11/30/24 21:50 Dextrose 50%-Water Inj 50 Ml Syringe IV 12/27/24 18:22 25 ml Q15MIN PRN Administration BG 50-70 responsive npo pt Dextrose 50 ml 11/27/24 18:23 Dextrose 50%-Water Inj 50 Ml Syringe IV 12/27/24 18:22 Q15MIN PRN BG <50 OR BG <70 & pt unresponsive Glucagon 1 mg 11/27/24 18:23 Glucagon Inj 1 Mg Vial IM Q15MIN PRN BG <70, and no IV access Heparin Sodium (Porcine) 5,000 unit 11/27/24 22:00 12/02/24 05:09 Heparin Sod Inj 5000 Unit/Ml Vial SC 12/11/24 21:59 5,000 unit Q8HR CHONG Administration Doxycycline Hyclate 100 mg/ 100 mls @ 100 mls/hr 11/28/24 21:00 12/02/24 09:10 Sodium Chloride IV 12/05/24 20:59 100 mls/hr BID CHONG Administration Ceftriaxone Sodium/Dextrose 1 gm in 50 mls @ 100 mls/hr 11/30/24 12:30 12/02/24 09:11 Rocephin/D5w 1gm Iv Premix IV 12/07/24 12:29 100 mls/hr QDAY CHONG Administration Insulin Glargine 10 unit 12/01/24 21:00 12/01/24 20:16 Insulin Glargine (Lantus) 5 Unit/0.05 Ml (Per 5 Units) SC 12/31/24 20:59 Not Given HS CHONG Insulin Human Lispro 0 unit 11/29/24 07:30 12/02/24 09:12 Insulin Lispro (Admelog) 1 Unit/0.01 Ml Unit SC 12/29/24 07:29 Not Given ACHS CHONG Protocol Ondansetron HCl 4 mg 11/27/24 18:00 Ondansetron Inj 2 Mg/Ml Inj 2 Ml IV 12/27/24 17:59 Q6H PRN NAUSEA OR VOMITING Protocol Pantoprazole Sodium 40 mg 11/28/24 09:00 12/02/24 09:11 Pantoprazole Inj 40 Mg Vial IVP 12/28/24 08:59 40 mg QDAY CHONG Administration Polyethylene Glycol 17 gm 11/29/24 09:00 12/02/24 11:26 Polyethylene Glycol 17 Gm Packet PO 12/29/24 08:59 17 gm QDAY CHONG Administration Sennosides 1 tab 11/30/24 09:00 12/02/24 11:26 Senna Tablet PO 12/30/24 08:59 1 tab QDAY CHONG Administration Protocol Plan 89-year-old [place]-speaking female with past medical history of type 2 diabetes, CVA, dementia, hyperlipidemia, hypertension, previous left extremity DVT, CKD stage 4, and GERD who was brought to the ED from [facility] on 11/27/2024 due to swelling and redness of the left lower extremity for DVT evaluation. Left venous duplex was negative for active DVT however patient was found to be in septic shock secondary to UTI and admitted to the ICU. She was weaned off pressors and subsequently downgraded to the medical floors on 11/28/2024. #Sepsis secondary to GNR UTI #Shock, likely distributive - resolved #Diastolic dysfunction, stage 1 #Pulmonary arterial hypertension #Leukocytosis Cardiogenic and obstructive etiologies were ruled out. Patient required low dose of norepinephrine to 0.09 while in ICU. 11/28/2024: Patient was weaned off norepi around 11 am. Patient received 3.5 L of NS since arrival. Echo showed EF 60-65% and stage I diastolic dysfunction. Mild LVH. Estimated RVSP moderately elevated at around 50 mmHg. Moderate TR. Mild aortic valve sclerosis without any kind of stenosis. Mild MAC as well as mild MR. Urine culture shows Proteus mirabellis which is sensitive to Zosyn Plan: Continue IV Rocephin 1 g daily Will transition to Augmentin 500 mg p.o. twice daily for 2 additional days on discharge Will discharge on 20 mg p.o. Lasix daily for the PAH #Left lower extremity edema #Pelvic outlet syndrome Left lower extremity venous doppler US on ED evaluation was negative for DVT but patient has significant leg swelling, according to patient, family, and report, developed just few days prior to admission. Patient does have documented history of left leg DVT dating back to 12/2023 in the SNF records. She is not currently on anticoagulation, she takes Plavix alone. Blood cultures show no growth over 24 hours Repeat duplex venous ultrasound ordered shows no signs of DVT Plan: Treating empirically for cellulitis IV doxycycline 100 mg twice daily Wound care, compression wrap PT Will transition to p.o. doxycycline 100 mg twice daily for 2 additional days on discharge #Acute metabolic encephalopathy #Intermittent agitation #History of dementia CT head was negative on admission. At baseline patient has a dementia, oriented only to self most times. Currently back to baseline mentation. Patient has a history of CVA, uses wheelchair at baseline. Likely exacerbated by the patient having active infection Per nursing, patient becoming aggressive and unable to reorient Plan: Avoid antipsychotic medication Anti-delirium measures including natural light, family visitation, frequent re-orientation, early mobility Discontinued seroquel 12.5 mg HS Continue soft mittens Continue treating underlying infection #Acute hypoxic respiratory failure - resolved #Community-acquired versus aspiration pneumonia Patient 2 days ago had vomiting per daughter. CT chest revealed left base pneumonia on admission. 11/28/2024: Patient saturating 98 to 100% on room air. On examination, lungs clear to auscultation bilaterally. Plan: Continue IV antibiotics Oxygen as needed #DEEPA on CKD, likely prerenal - improving Most likely prerenal in the setting of hypovolemia/shock. Creatinine 3.2 on presentation with GFR of 13. Baseline appeared to be creatinine 1.8-2.0 and GFR 20-22. Patient received total 3.5L fluids since hospital arrival. Plan: Monitor renal function Strict I&Os Urine output measurement Discontinue Rizzo catheter #Metabolic acidosis - improving #Lactic acidosis - resolved #NAGMA plus AGMA On labs this morning, bicarb of 12.6 with anion gap of 16, corrected for albumin of 2.9-18.5. Lactic acid normal. BHB-2.3. Order urine lytes to check urine anion gap as well as optimize blood glucose control. Plan: Urine electrolytes being collected Monitor CMP #History of CVA Continue home clopidogrel 75 mg qday #History of type 2 diabetes On admission initial glucose 145. A1c 7.8 this admission. Patient takes insulin glargine 18 U qday, insulin aspart 7 U AC, insulin aspart sliding scale, Tradjenta 5 mg daily for diabetes at [facility]. Plan: Changed insulin glargine 12 units to 10 units at bedtime Insulin lispro sliding scale step 2, adjusted as necessary Carb consistent low diet #History of hypertension Home medications include carvedilol and amlodipine. Plan: Held all current medications in the setting of shock Restarted on discharge #History of GERD Continue pantoprazole 40 mg IV qday, will transition to p.o. when appropriate #Anemia of chronic disease Likely in the setting of CKD. Home medications include ferrous sulfate 325 mg BID. Stable at this time. Hold home medication in setting of acute illness Hospital Management: Lines: PIV Diet: Carb consistent low Bowel: Senna and polyethylene glycol GI prophylaxis: Not needed DVT prophylaxis: Heparin Dispo: Avoid antipsychotic medications as the patient is expected discharge within the next 24 hours to SNF Code: Full Patient seen and examined with attending Dr. Connell and senior resident Dr. Ritesh Dennis, PGY-1 -- ATTESTATION: I saw and examined the patient this morning, and I agree with current management stated by the resident. Will continue to monitor patient during their stay. Patient is a 89-year-old female past medical history of type 2 diabetes, CVA, dementia, hyperlipidemia, hypertension, previous left extremity DVT, CKD stage IV, and GERD who was admitted on 11/27/2024 and found to be severely septic with shock secondary to GNR UTI. Patient initially required ICU level of care due to hypotension despite adequate fluid resuscitation and was started on broad antibiotics. She was subsequently downgraded to us on the floors and patient has been recuperating well. IV antibiotics was downgraded to ceftriaxone and patient has been clinically improving. Patient is stable to discharge on 2 more days of antibiotic, pending SNF placement. Disclaimer: Despite multiple revisions, due to the dictation software being used, the document bellow may not be free of grammatical errors including phonetic/typographic errors. However, this does not deter from our commitment to providing health care in the patient's best interest in mind. Dr. Fernando Awad, PGY-3 Attending Provider Attestation/Addendum I, Kristen Connell DO, attest that I was physically present for the garibay portions of the service and evaluated the patient with the resident and I reviewed and discussed the case with the resident and agree with the resident's findings and plans of care as documented above Patient seen and evaluated this AM. No acute events overnight. Patient has been more somnolent today since she received seroquel overnight. She is otherwise arousable and at her baseline in the afternoon. LLE appears unchanged. Patient does not want compression bandaging due to discomfort. Per SNF, patient can be discharged once off seroquel and antipsychotics at least 24hrs.
[2024-12-03] VITALS (7 sets, daily range): BP systolic 133–160; BP diastolic 59–70; PULSE 63–100; RESP 13–98; TEMP 36.1–37; O2SAT 94–100; BMI 20.9
[2024-12-03] MEDS: HEPARIN SOD INJ 5000 UNIT/ML VIAL SC ×2 (05:24→13:24)
[2024-12-03 05:57] LABS: Basophils % (Auto) 0 % (0-2.5); Eosinophils # (Auto) 0.4 Thou/mm3 (0.0-0.5); Eosinophils % (Auto) 5 % (0-10); Hematocrit 23.8 % (36.0-46.0); Immature Granulocytes % (Auto) 4 % (0-0); Immature Granulocytes Auto 0.29 Thou/mm3 (0.00-0.00); Lymphocytes # (Auto) 1.4 Thou/mm3 (1.0-4.8); Lymphocytes % (Auto) 17 % (10-50); Mean Corpuscular HGB Conc 32.4 g/dl (31.0-37.0); Mean Corpuscular Hemoglobin 31.8 pg (25.0-35.0); Mean Corpuscular Volume 98 fL (80-100); Monocytes # (Auto) 0.6 Thou/mm3 (0.0-0.8); Monocytes % (Auto) 7 % (0-12); Neutrophils # (Auto) 5.5 Thou/mm3 (1.8-7.7); Neutrophils % (Auto) 67 % (37-80); Nucleated Red Blood Cell # 0.02 Thou/mm3 (0.00-0.00); Nucleated Red Blood Cell % 0 /100 WBC (0); Platelet Count 309 Thou/mm3 (140-440); RDW Standard Deviation 44.2 fL (36.4-46.3); Red Blood Count 2.42 Miln/mm3 (4.00-5.20); White Blood Count 8.2 Thou/mm3 (3.6-11.0)
[2024-12-03 05:58] LABS: Hemoglobin 7.7 g/dL (12.0-16.0)
[2024-12-03 06:22] LABS: Alanine Aminotransferase 17 U/L (10-49); Albumin, Serum 3.2 gm/dL (3.4-4.8); Albumin/Globulin Ratio 0.9 (1.2-2.2); Alkaline Phosphatase 94 U/L (46-116); Anion Gap 12 (7-16); Aspartate Amino Transferase 25 U/L (0-34); BUN/Creatinine Ratio 14 Ratio (12-20); Bilirubin,Total 0.3 mg/dL (0.3-1.2); Blood Urea Nitrogen 23 mg/dL (9-23); Calcium 8.6 mg/dL (8.3-10.6); Calcium (Corrected) 9.2 mg/dL (8.5-10.1); Carbon Dioxide 19.6 mMol/L (20.0-31.0); Chloride 109 mMol/L (98-107); Creatinine (Component) 1.6 mg/dL (0.6-1.3); Globulin 3.4 gm/dL (2.3-3.5); Glucose 111 mg/dL (74-106); Osmolality,Calculated 285 (275-295); Potassium 4.3 mMol/L (3.4-5.1); Sodium 141 mMol/L (136-145); Total Protein 6.6 gm/dL (5.7-8.2); eGFR 31 See Note
[2024-12-03] MEDS: cefTRIAXone/D5w 1gm IV premix 1 GM/50 ML BAG IV (09:24)
[2024-12-03] MEDS: DOXYCYCLINE INJ 100 MG in SODIUM CHLORIDE 0.9% (POP) 100 ML IV (09:24)
[2024-12-03] MEDS: CLOPIDOGREL BISULFATE 75 MG TABLET PO (09:25)
[2024-12-03] MEDS: SENNA TABLET 1 TAB PO (09:25)
[2024-12-03] MEDS: POLYETHYLENE GLYCOL 17 GM PACKET PO (09:25)
--- NOTE | 2024-12-03 11:28 | ESDS_ITS ---
<Statement entered by Kristen Connell DO - 12/04/24 08:04> I, Kristen Connell DO, attest that I was physically present for the garibay portions of the service and evaluated the patient with the resident and I reviewed and discussed the case with the resident and agree with the resident's findings and plans of care as documented above Planned Discharge Date 12/03/24 DS: Providers Provider Date of admission: 11/27/24 17:39 Primary care physician: Williams White MD Admitting Provider: Kathy Reina MD Attending Provider on Admission: Kristen Connell DO Consults: 11/28/24 07:37 Referral Wound Care Stat Comment: Compression wrapping for pelvic outlet syndrome Attending Provider on DC: Haile Dennis MD Discharging Provider: Haile Dennis MD DS: Diagnosis Problem List Completed Was Problem List Reviewed/Reconciled?: Yes Hospital Course Hospital Course Hospital course: 89-year-old female with past medical history of type 2 diabetes, GERD, CVA, dementia, hyperlipidemia, hypertension, history of DVT, CKD stage IV presented to ED from [facility] on 11/27 due to left lower extremity swelling and redness. In the ED, patient was initially hemodynamically stable but suddenly became less responsive and desaturated to the 80s with a MAP less than 50. Patient received 1 L IV fluid resuscitation bolus along with pressor support and ICU admission for sepsis secondary to UTI and cellulitis. Patient was volume responsive and was given IV fluids, echocardiogram was done which showed good ventricular contractility and eventually the patient's MAP improved and she was downgraded to the floors on 11/28. Patient did become agitated during hospitalization and required some doses of Benadryl, haloperidol and soft mittens were initiated. Patient was treated for Proteus Mirabella's UTI with IV antibiotics and repeat ultrasound of lower extremity did not show any signs of DVT. Patient was then started on Seroquel at night to avoid haloperidol and did have less agitation but mental status was not as alert. Cervical was discontinued and the patient's mental status improved. Lower extremity edema was attributed to pelvic outlet syndrome and the patient was given compression stockings and wound care followed. Patient made significant progress and is returning back to baseline with the following strict instructions to be implemented at the snf facility. Please take amoxicillin-clavulanate 500-125mg by mouth twice a day for two more days for UTI Please take doxycycline 100mg by mouth twice a day for two more days for cellulitis of left foot Please take Lasix 20mg by mouth daily for Pulmonary Hypertension and fluid in your legs Continue taking all other home medications as prescribed Follow-up with your PCP within 1-2 weeks If your symptoms worsen or if you develop new chest pain, shortness of breath, fever/chills, severe abdominal pain - please come back to the ED immediately. Hospital Diagnosis: #Sepsis secondary to Proteus Mirabilis UTI #Shock, likely distributive - resolved #Diastolic dysfunction, stage 1 #Pulmonary arterial hypertension #Left lower extremity edema #Pelvic outlet syndrome #Acute metabolic encephalopathy #Intermittent agitation #History of dementia #Acute hypoxic respiratory failure - resolved #Community-acquired versus aspiration pneumonia #DEEPA on CKD, likely prerenal - improving #Metabolic acidosis - improving #Lactic acidosis - resolved #NAGMA plus AGMA #History of CVA #History of type 2 diabetes #History of hypertension #History of GERD #Anemia of chronic disease Haile Dennis, PGY-1 Status at Discharge Overall status at discharge: patient is progressing back to baseline Time Spent with Patient Time attestation: Total time spent providing and/or coordinating discharge services: 45 minutes Time spent: Greater than 30 minutes Exam Vital Signs Temp Pulse Resp BP Pulse Ox O2 Del Method O2 Flow Rate 97.0 F 63 16 145/59 H 99 Room Air 2 12/03/24 08:00 12/03/24 08:00 12/03/24 08:00 12/03/24 08:00 12/03/24 08:00 12/03/24 08:00 12/02/24 02:56 Narrative Exam Physical Exam General: Elderly female, awake. Answers in [place] HEENT: Normocephalic, moist mucous membranes, PERRLA, EOMI Heart: Regular rate and rhythm, no murmurs. Lungs: Clear to auscultation with no wheezing or crackles. Abdomen: Soft, nondistended, nontender, positive bowel sounds. ?No guarding or rebound tenderness. Extremities: Patient's left lower extremity, below arnold region is markedly erythematous and edematous, with +1 pitting edema in comparison the right lower extremity which is normal in appearance. Neurologic: Unable to assess orientation as the patient becomes agitated sporadically but then relaxes when not prompted Discharge Plan Plan Patient Disposition: Xfer Skilled Nsg Fac (SNF) Patient condition on transfer: Stable Care Plan Goals: Please take amoxicillin-clavulanate 500-125mg by mouth twice a day for two more days for UTI Please take doxycycline 100mg by mouth twice a day for two more days for cellulitis of left foot Please take Lasix 20mg by mouth daily for Pulmonary Hypertension and fluid in your legs Continue taking all other home medications as prescribed Follow-up with your PCP within 1-2 weeks If your symptoms worsen or if you develop new chest pain, shortness of breath, fever/chills, severe abdominal pain - please come back to the ED immediately. Prescriptions/Referrals Prescriptions/Med Rec: New furosemide [Lasix] 20 mg tablet 20 mg PO QDAY 30 Days Qty: 30 0RF Continued famotidine [Pepcid] 20 MG tablet 20 mg PO QDAY Qty: 0 Patient Comments: TO SUPPRESS GASTRIC ACID SECRETION ferrous sulfate 325 mg (65 mg iron) Tablet 325 mg PO BID folic acid 1 mg tablet 1 mg PO QDAY calcitriol 0.25 mcg Capsule 0.25 mcg PO HS memantine 10 mg Tablet 10 mg PO BID insulin glargine [Basaglar KwikPen U-100 Insulin] 100 unit/mL (3 mL) insulin pen 18 unit SUBCUT QAM Rx Instructions: NOTIFY MD IF BS >400,<70 diphenhydramine HCl [Benadryl Allergy] 25 mg tablet 25 mg PO Q12HR PRN (Reason: skin rash) carvedilol 3.125 mg Tablet 3.125 mg PO BID Rx Instructions: must administer with a meal/food HOLD FOR SBP<100,DBP<60 amlodipine 2.5 mg Tablet 2.5 mg PO QAM Rx Instructions: HOLD FOR SBP<100 OR DBP<60 clopidogrel 75 mg Tablet 75 mg PO QDAY atorvastatin 80 mg Tablet 80 mg PO HS pantoprazole 40 mg tablet,delayed release (DR/EC) 40 mg PO QDAY Qty: 30 1RF insulin glargine [Basaglar KwikPen U-100 Insulin] 100 unit/mL (3 mL) Insulin Pen 18 unit SUBCUT HS Rx Instructions: DM FINGERSTICK PRIOR TO ADMINISTRATION-NOTIFY MD IF BS>400,<70 Tradjenta 5 mg Tablet 5 mg PO QDAY Rx Instructions: FOR DM,HOLD IF BS <100 OR NOTIFY MD IF BS>400 acetaminophen [Tylenol] 325 mg Tablet 650 mg PO Q6HR PRN (Reason: MILD PAIN (1-3)) insulin aspart U-100 [Novolog U-100 Insulin aspart] 100 unit/mL Solution 1 sliding scale dose SUBCUT USEASDIRECTD Rx Instructions: INJECT PER SLIDING SCALE: IF 70-150=0;151-200=2;201-250=4;251-300=6;301-350=8;351-400=10;>400 NOTIFY MD,SUBCUT 3X A DAY FOR DM HOLD BS IF<100 OR NOTIFY MD IF BS >400,<70 FINGERSTICK PRIOR TO ADMINISTRATION. cyanocobalamin (vitamin B-12) 1,000 mcg Tablet 2,000 mcg PO DAILY Discontinued cephalexin 500 mg capsule 500 mg PO BID Qty: 10 0RF Referrals: Williams White MD [Primary Care Provider] - Patient/Caregiver Discharge Instructions Other Discharge Activity Instructions:: Please have the patient work with physical therapy at least once a day. Other Discharge Diet Instructions: We recommend a Carb consistent low diet for the patient: OK to eat: Protein: Meat, poultry, fish, eggs, and dairy (plain Portuguese yogurt, cottage cheese, cheese). Healthy Fats: Avocados, nuts (in moderation), seeds, and olive oil. Low-Carb Vegetables: Non-starchy vegetables like broccoli, leafy greens, and jackson peppers. Low-Carb Fruits: Berries (strawberries, blueberries, raspberries, blackberries). [place] Flour: A good alternative to traditional flour. Avoid: Refined Carbohydrates: White bread, sugary drinks, and processed snacks. Starchy Vegetables: Potatoes, corn, and peas. High-Carb Fruits: Bananas, mangoes, and pineapples. Processed Foods: These often contain hidden sugars and unhealthy fats Education Materials: Dementia Patients Caregiver, Discharge Instructions for Cellulitis, Delirium & Dementia Difference Print Language: Singaporean Stand Alone Forms: [employer]elsy Award Info., Patient Portal Info Letter Discharge Order Discharge Orders: Discharge (Routine); Ordered 12/03/24 Ordered By: Lacie Higgins Quality Discharge Quality Measures VTE prophylaxis
--- NOTE | 2024-12-03 12:30 | PC.SS ---
SS spoke to Flakita at [facility] who states she will accept pt back today.
--- NOTE | 2024-12-03 13:53 | PC.SS ---
BONNIE has setup gurney transportation with Alie at [facility] for 5pm.? Ref# [id number]..? SS has requested [facility].? SS has informed Alie to Contact [facility] for transportation. Estimated time is 3-4 hours.? SS has sent patient?s facesheet and ambulance form to [facility] using [employer] [facility].? SS has spoken to at [facility] and confirmed with [facility] they have received patient's information. [facility] will contact BONNIE once they have been contacted by [facility].
== END 2024-12-03 18:58 | disposition skilled nursing facility (03) | DRG 871 ==
LOC: SERX 17:13 → SERHOLD 18:04 → S2SX 21:02 → S2NX 11-29 20:50
PROVIDERS: Registered Nurse General Practice; Student in an Organized Health Care Education/Training Program; Admitting Provider Internal Medicine; Emergency Provider Student in an Organized Health Care Education/Training Program; PCP Hospitalist; Visit Provider Internal Medicine
DX: A41.59 Other Gram-negative sepsis (principal); G93.41 Metabolic encephalopathy; R65.21 Severe sepsis with septic shock; J18.9 Pneumonia, unspecified organism; J96.01 Acute respiratory failure with hypoxia; N39.0 Urinary tract infection, site not specified; L03.116 Cellulitis of left lower limb; N18.4 Chronic kidney disease, stage 4 (severe); N17.9 Acute kidney failure, unspecified; E87.1 Hypo-osmolality and hyponatremia; E87.20 Acidosis, unspecified; K56.7 Ileus, unspecified; E11.22 Type 2 diabetes mellitus with diabetic chronic kidney disease; K21.9 Gastro-esophageal reflux disease without esophagitis; I12.9 Hypertensive chronic kidney disease with stage 1 through stage 4 chronic kidney disease, or unspecified chronic kidney disease; F02.80 Dementia in other diseases classified elsewhere, unspecified severity, without behavioral disturbance, psychotic disturbance, mood disturbance, and anxiety; E78.5 Hyperlipidemia, unspecified; D63.1 Anemia in chronic kidney disease; E86.1 Hypovolemia; I27.21 Secondary pulmonary arterial hypertension; E86.0 Dehydration; E87.5 Hyperkalemia; G30.9 Alzheimer's disease, unspecified; Z86.718 Personal history of other venous thrombosis and embolism; Z79.4 Long term (current) use of insulin; Z86.73 Personal history of transient ischemic attack (TIA), and cerebral infarction without residual deficits; Z78.1 Physical restraint status; Z79.84 Long term (current) use of oral hypoglycemic drugs; Z79.02 Long term (current) use of antithrombotics/antiplatelets; G54.0 Brachial plexus disorders; I35.8 Other nonrheumatic aortic valve disorders; Z79.899 Other long term (current) drug therapy
CPT/HCPCS: 36415; 36600; 70450; 71045; 71250; 74176; 80053; 80061; 80069; 80202; 81001; 82010; 82270; 82436; 82728; 82803; 83036; 83540; 83550; 83605; 83735; 84100; 84132; 84133; 84145; 84300; 84484; 85014; 85018; 85025; 85046; 85610; 85730; 86850; 86900; 86901; 86923; 87040; 87077; 87081; 87086; 87186; 87811; 93005; 93306; 93970; 93971; 99285; J0696; J1200; J1630; J1643; J1815; J2470; J2543; J3372; J3490; J7040; J7050; J7120; Q5105; A9270